=== PATIENT | female | born 1980 | race Native Hawaiian/Other Pacific Islander ===

== ENCOUNTER 2018-07-31 16:57 | Emergency (ER) | payer BC ==
--- NOTE | 2018-07-31 18:42 | ER Document Report ---
ED Medical Screen (RME) - General Chief Complaint: Lower Abdominal Pain Stated Complaint: ABDOMINAL PAIN Time Seen by Provider: 07/31/18 18:33 Notes: Patient is a 38-year-old female presents to the emergency department with generalized left lower abdominal pain. Patient states she started her menstrual cycle today state that the intermittent left lower abdominal pain is sharp in nature and does not feel like her normal menstrual cramps. Patient states she has a pressure when she urinates but is denying any malodorous or itchy vaginal discharge. GENERAL: Alert, interacts well. No acute distress. ABDOMEN: Obese soft, Non-distended. Bowel sounds present in all 4 quadrants. Patient's abdomen is hard to be assessed due to her sitting in a chair and not having anywhere for her to lay flat. Patient's habitus makes it hard to assess if her pain is left lower abdomen quadrant or left pelvic region. I have greeted and performed a rapid initial assessment of this patient. A comprehensive ED assessment and evaluation of the patient, analysis of test results and completion of the medical decision making process will be conducted by additional ED providers. TRAVEL OUTSIDE OF THE [place] IN LAST 30 DAYS: No - Related Data Allergies/Adverse Reactions: acetaminophen [From Midrin] Allergy (Verified 07/31/18 17:03) dichloralphenazone [From Midrin] Allergy (Verified 07/31/18 17:03) isometheptene [From Midrin] Allergy (Verified 07/31/18 17:03) Past Medical History Renal/ Medical History: Denies: Hx Peritoneal Dialysis Physical Exam - Vital signs Vitals: Temp Pulse Resp BP Pulse Ox 98.6 F 102 H 17 149/115 H 98 07/31/18 17:15 07/31/18 17:15 07/31/18 17:15 07/31/18 17:15 07/31/18 17:15 Course - Vital Signs Vital signs: Temp Pulse Resp BP Pulse Ox 98.6 F 102 H 17 149/115 H 98 07/31/18 17:15 07/31/18 17:15 07/31/18 17:15 07/31/18 17:15 07/31/18 17:15
[2018-07-31 19:52] LABS: ABSOLUTE BASOPHILS # (AUTO) 0.1 10^3/uL (0.0-0.2); ABSOLUTE EOSINOPHILS # (AUTO) 0.2 10^3/uL (0.0-0.6); ABSOLUTE LYMPHOCYTES (AUTO) 2.6 10^3/uL (0.5-4.7); ABSOLUTE MONOCYTES (AUTO) 0.8 10^3/uL (0.1-1.4); BASOPHILS % (AUTO) 0.6 % (0-2); EOSINOPHILS % (AUTO) 1.8 % (0-6); HEMATOCRIT 35.5 % (36.0-47.0); HEMOGLOBIN 11.3 g/dL (12.0-15.5); LYMPHOCYTES % (AUTO) 26.9 % (13-45); MEAN CORPUSCULAR HEMOGLOBIN 24.8 pg (27.0-33.4); MEAN CORPUSCULAR VOLUME 78 fl (80-97); MONOCYTES % (AUTO) 8.3 % (3-13); PLATELET COUNT 353 10^3/uL (150-450); RED BLOOD COUNT 4.57 10^6/uL (3.72-5.28); RED CELL DISTRIBUTION WIDTH 15.5 % (11.5-14.0); SEGMENTED NEUTROPHILS % (AUTO) 62.4 % (42-78); TOTAL CELLS COUNTED % (AUTO) 100 %; WHITE BLOOD COUNT 9.6 10^3/uL (4.0-10.5)
[2018-07-31 19:56] LABS: APPEARANCE,URINE SLIGHTLY-CLOUDY; BILIRUBIN,URINE NEGATIVE (NEGATIVE); COLOR,URINE YELLOW; GLUCOSE, URINE NEGATIVE (NEGATIVE); KETONES,URINE NEGATIVE (NEGATIVE); LEUKOCYTE ESTERASE,URINE NEGATIVE (NEGATIVE); NITRITE,URINE NEGATIVE (NEGATIVE); PROTEIN,URINE NEGATIVE (NEGATIVE); URINE SPECIFIC GRAVITY 1.016; UROBILINOGEN,URINE NEGATIVE mg/dL (<2.0)
[2018-07-31 20:12] LABS: ALANINE AMINOTRANSFERASE 19 U/L (9-52); ALBUMIN 4.5 g/dL (3.5-5.0); ALKALINE PHOSPHATASE 74 U/L (38-126); ANION GAP 11 (5-19); ASPARTATE AMINO TRANSFERASE 17 U/L (14-36); BILIRUBIN,DIRECT 0.2 mg/dL (0.0-0.4); BILIRUBIN,TOTAL 0.3 mg/dL (0.2-1.3); BLOOD UREA NITROGEN 11 mg/dL (7-20); CALCIUM 9.5 mg/dL (8.4-10.2); CARBON DIOXIDE 28 mmol/L (22-30); CHLORIDE 102 mmol/L (98-107); GLUCOSE 95 mg/dL (75-110); SODIUM 140.6 mmol/L (137-145); TOTAL PROTEIN 7.8 g/dL (6.3-8.2)
--- NOTE | 2018-07-31 23:02 | ER Document Report ---
ED GI/ - General Chief Complaint: Lower Abdominal Pain Stated Complaint: ABDOMINAL PAIN Time Seen by Provider: 07/31/18 22:51 Mode of Arrival: Ambulatory Information source: Patient Notes: HISTORY OF PRESENT ILLNESS: Patient is a 38-year-old female with a past medical history of polycystic ovary syndrome and irregular menses who presents with left lower pelvic pain beginning today with onset of her menstruation. She reports that she normally has approximate 45-day cycles and this was no different other than the degree of her pain which is not normally this severe. Onset: Today Provocation: Movement Quality: Aching, twisting Radiation: Bilateral low back Severity: Moderate now, was severe prior to arrival Timing: Constant but mildly improving REVIEW OF SYSTEMS: CONSTITUTIONAL : Denies fever or chills, no sweats. Denies recent illness. EENT: Denies eye, ear, throat, or mouth pain or symptoms. Denies nasal or sinus congestion. CARDIOVASCULAR: Denies chest pain. RESPIRATORY: Denies cough, cold, or chest congestion. Denies shortness of breath, difficulty breathing, or wheezing. GASTROINTESTINAL: Denies abdominal pain. Denies nausea, vomiting, or diarrhea. Denies constipation. GENITOURINARY: Denies difficulty urinating, painful urination, burning, frequency, or blood in urine. [FEMALE GENITOURINARY: Positive vaginal bleeding and pelvic/back pain. MUSCULOSKELETAL: Denies neck or back pain or joint pain or swelling. SKIN: Denies rash or skin lesions. HEMATOLOGIC : Denies easy bruising or bleeding. LYMPHATIC: Denies swollen, enlarged glands. NEUROLOGICAL: Denies altered mental status or loss of consciousness. Denies headache. Denies weakness or paralysis or loss of use of either side. Denies problems with gait or speech. Denies sensory or motor loss. PSYCHIATRIC: Denies anxiety or stress or depression. All other systems reviewed and negative. PHYSICAL EXAMINATION: GENERAL: Well-appearing, well-nourished and in no acute distress. HEAD: Atraumatic, normocephalic. No scalp deformity, depression, or crepitance. EYES: Pupils are 3 mm and equal/round/reactive to light, extraocular movements intact, sclera anicteric, conjunctiva are normal. ENT: Nares patent bilaterally, oropharynx clear without exudates or palatal petechia. Moist mucous membranes. No tonsil hypertrophy. NECK: Normal range of motion, supple without lymphadenopathy. LUNGS: Breath sounds present, equal, and clear to auscultation bilaterally. No wheezes, rales, or rhonchi. HEART: Regular rate and rhythm without murmurs, rubs, or gallops. 2+ peripheral pulses. Normal capillary refill. ABDOMEN: Soft, nontender, nondistended. Normoactive bowel sounds. No guarding, no rebound. No masses appreciated. Rectal exam deferred. BACK: No pain on palpation to the upper, mid, or lower back. PELVIC: Deferred. EXTREMITIES: Normal range of motion, no pitting or edema. No cyanosis. NEUROLOGICAL: No focal neurological deficits. Moves all extremities spontaneously and on command. PSYCH: Normal mood, normal affect. No suicidal thoughts/ideations. No homocidal thoughts/ideations. No hallucinations. SKIN: Warm, dry, normal turgor, no rashes or lesions noted. ASSESSMENT AND PLAN: This patient is a 38-year-old female who presents with likely ovarian cyst versu s torsion versus normal menstrual pains. 1. Will obtain labs with test, urinalysis, and pelvic ultrasound. 2. Will reassess after intramuscular Toradol. TRAVEL OUTSIDE OF THE [place] IN LAST 30 DAYS: No - Related Data Allergies/Adverse Reactions: acetaminophen [From Midrin] Allergy (Verified 07/31/18 17:03) dichloralphenazone [From Midrin] Allergy (Verified 07/31/18 17:03) isometheptene [From Midrin] Allergy (Verified 07/31/18 17:03) Past Medical History - General Information source: Patient - Social History Smoking Status: Smoker,Current Status Unk Chew tobacco use (# tins/day): No Frequency of alcohol use: None Drug Abuse: None Lives with: Family Family History: Reviewed & Not Pertinent Patient has suicidal ideation: No Patient has homicidal ideation: No - Past Medical History Cardiac Medical History: Reports: None Pulmonary Medical History: Reports: None EENT Medical History: Reports: None Neurological Medical History: Reports: None Endocrine Medical History: Reports: None Renal/ Medical History: Reports: None. Denies: Hx Peritoneal Dialysis Malignancy Medical History: Reports: None GI Medical History: Reports: None Musculoskeletal Medical History: Reports None Skin Medical History: Reports None Psychiatric Medical History: Reports: None Traumatic Medical History: Reports: None Infectious Medical History: Reports: None Surgical Hx: Negative Past Surgical History: Reports: None - Immunizations Immunizations up to date: Yes Hx Diphtheria, Pertussis, Tetanus Vaccination: Yes Physical Exam - Vital signs Vitals: Temp Pulse Resp BP Pulse Ox 98.6 F 102 H 17 149/115 H 98 07/31/18 17:15 07/31/18 17:15 07/31/18 17:15 07/31/18 17:15 07/31/18 17:15 Course - Re-evaluation Re-evalutation: 08/01/18 01:45 Ultrasound is negative for acute ovarian pathology, however does report thickened endometrial stripe and recommends follow-up with gynecology. Patient was informed of this and she reports that she will make an appointment as soon as she can with [place] She will be discharged home with return precautions and follow-up, patient voices both understanding and agreeing with the plan. - Vital Signs Vital signs: Temp Pulse Resp BP Pulse Ox 98.6 F 102 H 17 149/115 H 98 07/31/18 17:15 07/31/18 17:15 07/31/18 17:15 07/31/18 17:15 07/31/18 17:15 - Laboratory Result Diagrams: 07/31/18 19:39 07/31/18 19:39 Laboratory results interpreted by me: 07/31/18 07/31/18 19:39 19:39 Hgb 11.3 L Hct 35.5 L MCV 78 L MCH 24.8 L RDW 15.5 H Urine Blood LARGE H - Diagnostic Test Radiology reviewed: Image reviewed, Reports reviewed Discharge - Discharge Clinical Impression: Menorrhagia with irregular cycle, Endometrial thickening on ultrasound Condition: Good Disposition: HOME, SELF-CARE Instructions: Dysfunctional Uterine Bleeding ([facility]) Additional Instructions: You have been evaluated in the Emergency Department for abdominal pain in the setting of an irregular period. Please follow-up with your barrel marker as instructed in 1-2 weeks. Return to the Emergency Department if you experience worsening pain, uncontrollable bleeding, or any other concerning symptoms. Prescriptions: Diclofenac Sodium 75 mg PO BID #30 tablet. Print Language: Greek
[2018-07-31] MEDS ORDERED: KETOROLAC TROMETHAMINE 60 MG/2 ML SDV IM ONE (23:37)
--- NOTE | 2018-08-01 01:20 | RADIOLOGY REPORT (SQ) ---
EXAM DESCRIPTION: US TRANSVAGINAL COMPLETED DATE/TME: 08/01/2018 00:05 CLINICAL HISTORY: 38 years Female, Pelvic pain Comparison: None. Technique: LIMITATIONS: None. FINDINGS: 10-cm uterus, 2.0-cm endometrial stripe thickness, 2.7-cm cervical length, nabothian cysts, 3.2-cm right ovary, and partially obscured 3.9-cm left ovary appear otherwise unremarkable in size, shape, echotexture, and vascularity. No free fluid. IMPRESSION: Thickened endometrial stripe thickness measures 2.0 cm. Differential diagnosis includes endometrial hyperplasia, endometritis, and endometrial polyp/neoplasm. 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
[2018-08-01 02:03] VITALS: BP 125/78
== END 2018-08-01 02:00 | disposition home or self-care (01) ==
LOC: ER 16:57
DX: N92.0 Excessive and frequent menstruation with regular cycle (principal); R93.89 Abnormal findings on diagnostic imaging of other specified body structures; M54.5 Low back pain; R10.2 Pelvic and perineal pain; R10.30 Lower abdominal pain, unspecified; E28.2 Polycystic ovarian syndrome; F17.200 Nicotine dependence, unspecified, uncomplicated; Z88.6 Allergy status to analgesic agent
CPT/HCPCS: 99284; 36415; 85025; 81025; 80053; 81001; 76830; 93976; J1885

== ENCOUNTER 2018-08-24 09:38 | Day surgery (SDC) | payer BC ==
[2018-08-21 12:14] LABS: APPEARANCE,URINE SLIGHTLY-CLOUDY; BILIRUBIN,URINE NEGATIVE (NEGATIVE); COLOR,URINE YELLOW; GLUCOSE, URINE NEGATIVE (NEGATIVE); KETONES,URINE NEGATIVE (NEGATIVE); LEUKOCYTE ESTERASE,URINE NEGATIVE (NEGATIVE); NITRITE,URINE NEGATIVE (NEGATIVE); PROTEIN,URINE NEGATIVE (NEGATIVE); URINE SPECIFIC GRAVITY 1.018; UROBILINOGEN,URINE NEGATIVE mg/dL (<2.0)
[2018-08-21 13:36] LABS: HEMATOCRIT 35.2 % (36.0-47.0); HEMOGLOBIN 11.4 g/dL (12.0-15.5); MEAN CORPUSCULAR HEMOGLOBIN 24.7 pg (27.0-33.4); MEAN CORPUSCULAR HGB CONC 32.3 g/dL (32.0-36.0); MEAN CORPUSCULAR VOLUME 77 fl (80-97); PLATELET COUNT 318 10^3/uL (150-450); RED CELL DISTRIBUTION WIDTH 14.8 % (11.5-14.0); WHITE BLOOD COUNT 8.3 10^3/uL (4.0-10.5)
[~2018-08-24 09:38] MED LIST: LACTATED RINGERS 1000 ML IV PRN; LIDOCAINE 0.5% INJ-PF (5 MG/ML) 50 ML SDV SUBCUT PRN
[2018-08-24] MEDS ORDERED: DIPHENHYDRAMINE HCL 50 MG/ML VIAL IV PRN (11:16)
[2018-08-24] MEDS ORDERED: MORPHINE SULFATE 10 MG/ML INJ IV PRN (11:16)
[2018-08-24] MEDS ORDERED: PROMETHAZINE HCL INJ 25 MG/1 ML VIAL IV PRN (11:16)
[2018-08-24] MEDS ORDERED: FENTANYL CITRATE INJ/PF 100 MCG/2 ML AMPUL IV PRN ×3 (11:16)
[2018-08-24] MEDS ORDERED: MEPERIDINE HCL/PF INJ 25 MG/1 ML DISP.SYRIN IV PRN (11:16)
[2018-08-24] MEDS ORDERED: MIDAZOLAM 2 MG/2 ML INJ ONE (12:05)
[2018-08-24] MEDS ORDERED: PROPOFOL INJ 200 MG/20 ML VIAL IV ONE (12:05)
[2018-08-24] MEDS ORDERED: FENTANYL CITRATE INJ/PF 100 MCG/2 ML AMPUL ONE ×2 (12:05→13:09)
[2018-08-24] MEDS ORDERED: ONDANSETRON HCL INJ/PF 4 MG/2 ML SDV ONE (12:05)
[2018-08-24] MEDS ORDERED: KETOROLAC TROMETHAMINE INJ/PF 30 MG/1 ML SDV ONE (13:16)
[2018-08-24] MEDS ORDERED: OXYCODONE-ACETAMINOPHEN 5-325 MG TABLET PO PRN ×2 (13:37→13:38)
[2018-08-24] MEDS ORDERED: IBUPROFEN 800 MG TABLET PO PRN (13:37)
[2018-08-24] MEDS ORDERED: MORPHINE SULFATE 10 MG/ML INJ IM PRN (13:37)
[2018-08-24] MEDS ORDERED: OXYCODONE-ACETAMINOPHEN 5-325 MG TABLET ONE (13:45)
--- NOTE | 2018-08-24 14:58 | OPERATIVE REPORT E ---
Operative Report NAME: NICOLE SHIELDS : 1980 AGE: 38Y DATE OF SURGERY: 08/24/2018 ROOM: PREOPERATIVE DIAGNOSIS: Abnormal uterine bleeding. POSTOPERATIVE DIAGNOSIS: Abnormal uterine bleeding. OPERATION: Hysteroscope, dilation and curettage. SURGEON: ADEEL SALVADOR M.D. ANESTHESIA: Joey Kasper M.D. with LMAC. FINDINGS: The uterus sounded to approximately 5 cm. Normal uterine cavity. Polyp that measured approximately a little over 1 cm. COMPLICATIONS: None. ESTIMATED BLOOD LOSS: 10 mL. SPECIMENS REMOVED: Endometrial curettings. PROCEDURE IN DETAIL: The patient was taken to the operating room, prepared and draped in the normal sterile fashion in a dorsal lithotomy position. Under sterile conditions in-and-out cath was performed of approximately 20 mL of clear urine. A sterile speculum was then placed in the vagina and the cervix was prepped with Betadine and grasped on the anterior lip with a single-tooth tenaculum. With some difficulty the uterine sound was inserted. The internal cervical os was found to be quite stenotic but I was able to measure the uterine cavity to approximately 5 cm. I then dilated to accommodate a 5 mm hysteroscope which was inserted with the above findings noted. I then performed aggressive curettage with a Kevorkian curette and passed the endometrial curettings off the field. A polyp was then noted in the vaginal vault at the conclusion of the procedure. This polyp was removed and also passed off the field with the rest of the specimen. At this point we concluded the procedure. Sponge, lap, and needle counts were correct x2. All instruments were removed, and the patient was taken to recovery in stable condition. DICTATING PHYSICIAN: ADEEL SALVADOR M.D. [id number] [id number] ID: [id number] JOB#: [id number] ACCT: [id number] cc:ADEEL SALVADOR M.D. >
[2018-08-24] MEDS ORDERED: ONDANSETRON 4 MG TAB.RAPDIS ONE (15:13)
[2018-08-24 15:52] VITALS: BP 130/81
== END 2018-08-24 15:30 | disposition home or self-care (01) ==
LOC: OROUT 09:38
PROVIDERS: ATTEND Obstetrics & Gynecology
DX: N84.0 Polyp of corpus uteri (principal); N94.6 Dysmenorrhea, unspecified; N93.9 Abnormal uterine and vaginal bleeding, unspecified; D64.9 Anemia, unspecified; F17.210 Nicotine dependence, cigarettes, uncomplicated
CPT/HCPCS: 36415; 85027; 81025; 81001; 88305 ×2; 58558; J2250; S0119; J3010; J1885; J2405; J2704; 952

== ENCOUNTER 2019-03-26 16:02 | Outpatient (CLI) | payer BC ==
[2019-03-26 16:57] LABS: ABSOLUTE EOSINOPHILS # (AUTO) 0.3 10^3/uL (0.0-0.6); ABSOLUTE LYMPHOCYTES (AUTO) 1.4 10^3/uL (0.5-4.7); ABSOLUTE MONOCYTES (AUTO) 0.8 10^3/uL (0.1-1.4); ABSOLUTE NEUT (AUTO) 8.4 10^3/uL (1.7-8.2); BASOPHILS % (AUTO) 0.1 % (0-2); EOSINOPHILS % (AUTO) 2.6 % (0-6); HEMATOCRIT 31.4 % (36.0-47.0); HEMOGLOBIN 10.3 g/dL (12.0-15.5); LYMPHOCYTES % (AUTO) 12.9 % (13-45); MEAN CORPUSCULAR HEMOGLOBIN 27.2 pg (27.0-33.4); MEAN CORPUSCULAR HGB CONC 32.9 g/dL (32.0-36.0); MEAN CORPUSCULAR VOLUME 83 fl (80-97); MONOCYTES % (AUTO) 7.5 % (3-13); PLATELET COUNT 242 10^3/uL (150-450); RED CELL DISTRIBUTION WIDTH 14.8 % (11.5-14.0); SEGMENTED NEUTROPHILS % (AUTO) 76.9 % (42-78); TOTAL CELLS COUNTED % (AUTO) 100 %; WHITE BLOOD COUNT 10.9 10^3/uL (4.0-10.5)
[2019-03-26 17:16] LABS: ALBUMIN 3.5 g/dL (3.5-5.0); ALKALINE PHOSPHATASE 54 U/L (38-126); ANION GAP 7 (5-19); ASPARTATE AMINO TRANSFERASE 33 U/L (14-36); BILIRUBIN,DIRECT 0.1 mg/dL (0.0-0.4); BILIRUBIN,TOTAL 0.3 mg/dL (0.2-1.3); BLOOD UREA NITROGEN 9 mg/dL (7-20); CALCIUM 9.3 mg/dL (8.4-10.2); CARBON DIOXIDE 26 mmol/L (22-30); CHLORIDE 102 mmol/L (98-107); GLUCOSE 85 mg/dL (75-110); POTASSIUM 4.1 mmol/L (3.6-5.0); TOTAL PROTEIN 6.5 g/dL (6.3-8.2); URIC ACID 4.9 mg/dL (2.5-7.0)
[2019-03-26 17:33] LABS: APPEARANCE,URINE SLIGHTLY-CLOUDY; BILIRUBIN,URINE NEGATIVE (NEGATIVE); COLOR,URINE YELLOW; GLUCOSE, URINE NEGATIVE (NEGATIVE); KETONES,URINE NEGATIVE (NEGATIVE); LEUKOCYTE ESTERASE,URINE NEGATIVE (NEGATIVE); NITRITE,URINE NEGATIVE (NEGATIVE); PROTEIN,URINE NEGATIVE (NEGATIVE); URINE SPECIFIC GRAVITY 1.013; UROBILINOGEN,URINE NEGATIVE mg/dL (<2.0)
[2019-03-26 17:50] LABS: URINE AMPHETAMINES SCREEN NEGATIVE; URINE BARBITURATES SCREEN NEGATIVE; URINE BENZODIAZEPINES SCREEN NEGATIVE; URINE COCAINE SCREEN NEGATIVE; URINE MARIJUANA (THC) SCREEN NEGATIVE; URINE METHADONE SCREEN NEGATIVE; URINE PHENCYCLIDINE SCREEN NEGATIVE
[2019-03-26 17:54] LABS: UR PRO/CREAT RATIO RESULT 0.1 mg/mg (0.0-0.2); URINE CREATININE 108.1 mg/dL (16-327); URINE PROTEIN 10.7 mg/dL (<12)
== END 2019-03-26 18:10 | disposition home or self-care (01) ==
LOC: LC 16:02
PROVIDERS: ATTEND Obstetrics & Gynecology
PROC: 4A1HXCZ Monitoring of Products of Conception, Cardiac Rate, External Approach (ICD-10-PCS; principal; 2019-03-26)
DX: O14.92 Unspecified pre-eclampsia, second trimester (principal); Z3A.25 25 weeks gestation of pregnancy
CPT/HCPCS: 36415; 80053; 80307; 81001; 82570; 83615; 84156; 84550; 85025

== ENCOUNTER 2019-04-20 08:39 | Outpatient (CLI) | payer BC ==
[2019-04-20 09:27] LABS: APPEARANCE,URINE SLIGHTLY-CLOUDY; BILIRUBIN,URINE NEGATIVE (NEGATIVE); COLOR,URINE YELLOW; GLUCOSE, URINE NEGATIVE (NEGATIVE); KETONES,URINE NEGATIVE (NEGATIVE); LEUKOCYTE ESTERASE,URINE NEGATIVE (NEGATIVE); NITRITE,URINE NEGATIVE (NEGATIVE); PROTEIN,URINE NEGATIVE (NEGATIVE); URINE SPECIFIC GRAVITY 1.014; UROBILINOGEN,URINE NEGATIVE mg/dL (<2.0)
[2019-04-20 09:54] LABS: URINE AMPHETAMINES SCREEN NEGATIVE; URINE BARBITURATES SCREEN NEGATIVE; URINE BENZODIAZEPINES SCREEN NEGATIVE; URINE COCAINE SCREEN NEGATIVE; URINE MARIJUANA (THC) SCREEN NEGATIVE; URINE METHADONE SCREEN NEGATIVE; URINE PHENCYCLIDINE SCREEN NEGATIVE
[2019-04-20 09:58] LABS: UR PRO/CREAT RATIO RESULT 0.2 mg/mg (0.0-0.2); URINE CREATININE 99.7 mg/dL (16-327); URINE PROTEIN 19.1 mg/dL (<12)
[2019-04-20 10:13] LABS: ABSOLUTE EOSINOPHILS # (AUTO) 0.2 10^3/uL (0.0-0.6); ABSOLUTE LYMPHOCYTES (AUTO) 1.2 10^3/uL (0.5-4.7); ABSOLUTE MONOCYTES (AUTO) 0.7 10^3/uL (0.1-1.4); ABSOLUTE NEUT (AUTO) 8.3 10^3/uL (1.7-8.2); BASOPHILS % (AUTO) 0.1 % (0-2); EOSINOPHILS % (AUTO) 1.9 % (0-6); HEMATOCRIT 32.3 % (36.0-47.0); HEMOGLOBIN 10.4 g/dL (12.0-15.5); LYMPHOCYTES % (AUTO) 11.3 % (13-45); MEAN CORPUSCULAR HEMOGLOBIN 27.3 pg (27.0-33.4); MEAN CORPUSCULAR HGB CONC 32.3 g/dL (32.0-36.0); MEAN CORPUSCULAR VOLUME 85 fl (80-97); MONOCYTES % (AUTO) 6.4 % (3-13); PLATELET COUNT 240 10^3/uL (150-450); RED BLOOD COUNT 3.82 10^6/uL (3.72-5.28); RED CELL DISTRIBUTION WIDTH 14.9 % (11.5-14.0); SEGMENTED NEUTROPHILS % (AUTO) 80.3 % (42-78); TOTAL CELLS COUNTED % (AUTO) 100 %; WHITE BLOOD COUNT 10.4 10^3/uL (4.0-10.5)
[2019-04-20 10:34] LABS: ALBUMIN 3.3 g/dL (3.5-5.0); ALKALINE PHOSPHATASE 56 U/L (38-126); ANION GAP 9 (5-19); ASPARTATE AMINO TRANSFERASE 43 U/L (14-36); BILIRUBIN,TOTAL 0.4 mg/dL (0.2-1.3); BLOOD UREA NITROGEN 10 mg/dL (7-20); CALCIUM 9.2 mg/dL (8.4-10.2); CARBON DIOXIDE 23 mmol/L (22-30); CHLORIDE 104 mmol/L (98-107); GLUCOSE 106 mg/dL (75-110); POTASSIUM 4.3 mmol/L (3.6-5.0); TOTAL PROTEIN 6.5 g/dL (6.3-8.2)
[2019-04-20] MEDS ORDERED: BUTALB/ACETAMINOPHEN/CAFFEINE 1 TAB EACH PO ONE (10:39)
[2019-04-20] MEDS ORDERED: BUTALB/ACETAMINOPHEN/CAFFEINE 1 TAB EACH ONE (10:54)
== END 2019-04-20 12:02 | disposition home or self-care (01) ==
LOC: LC 08:39
PROVIDERS: ATTEND Obstetrics & Gynecology
PROC: 4A1HXCZ Monitoring of Products of Conception, Cardiac Rate, External Approach (ICD-10-PCS; principal; 2019-04-20)
DX: O16.3 Unspecified maternal hypertension, third trimester (principal); O09.513 Supervision of elderly primigravida, third trimester; Z3A.29 29 weeks gestation of pregnancy
CPT/HCPCS: 59899; 36415; 83615; 84156; 84550; 82570; 85025; 80053; 81001; 80307; J3490

== ENCOUNTER → 2019-04-30 | Outpatient (CLI) | payer BC ==
[2019-04-30 18:09] LABS: APPEARANCE,URINE CLEAR; BILIRUBIN,URINE NEGATIVE (NEGATIVE); COLOR,URINE COLORLESS; GLUCOSE, URINE NEGATIVE (NEGATIVE); KETONES,URINE NEGATIVE (NEGATIVE); LEUKOCYTE ESTERASE,URINE NEGATIVE (NEGATIVE); NITRITE,URINE NEGATIVE (NEGATIVE); PROTEIN,URINE 30 mg/dL (NEGATIVE); UROBILINOGEN,URINE NEGATIVE mg/dL (<2.0)
[2019-04-30 18:21] LABS: URINE SPECIFIC GRAVITY 1.019
[2019-04-30 18:28] LABS: URINE AMPHETAMINES SCREEN NEGATIVE; URINE BARBITURATES SCREEN NEGATIVE; URINE BENZODIAZEPINES SCREEN NEGATIVE; URINE COCAINE SCREEN NEGATIVE; URINE MARIJUANA (THC) SCREEN NEGATIVE; URINE METHADONE SCREEN NEGATIVE; URINE PHENCYCLIDINE SCREEN NEGATIVE
--- NOTE | 2019-04-30 18:57 | Non Stress Test Report ---
Non Stress Test Datetime Report Generated by CPN: 04/30/2019 18:57 DEMOGRAPHIC EGA NST: 30.6 MONITORING Time on Monitor: 04/30/2019 17:04 Time off Monitor: 04/30/2019 18:30 NST Duration: 86 NST INTERVENTIONS BABY A: [id number] BABY A Movement : Present Contraction Frequency : none FHR Baseline : 135 Accelerations : 15X15 Decelerations : None Variability : Moderate 6-25bpm NST Review: Meets Criteria for Reactive NST NST Review and Verified By : squinn NST Results: Reactive NST REPORT Report Trigger: Send Report (Annotations: Data stored by CPN on behalf of user)
== END ==
LOC: LC 16:56
PROVIDERS: ATTEND Obstetrics & Gynecology
PROC: 4A1HXCZ Monitoring of Products of Conception, Cardiac Rate, External Approach (ICD-10-PCS; principal; 2019-04-30)
DX: Z34.93 Encounter for supervision of normal pregnancy, unspecified, third trimester (principal)
CPT/HCPCS: 59025; 80307; 81001

== ENCOUNTER 2019-05-10 16:58 | Observation (INO) | payer BC ==
[2019-05-10] MEDS ORDERED: OXYTOCIN/NORMAL SALINE 0 UNIT/0 ML RTUINJ ONE (17:55)
--- NOTE | 2019-05-10 18:25 | Non Stress Test Report ---
Non Stress Test Datetime Report Generated by CPN: 05/10/2019 18:25 DEMOGRAPHIC EGA NST: 32.2 INDICATION Indication for Study: Gestational Hypertension; Chronic Hypertension; Other - Please document "Reason for NST Other" in box below. Indication for Study (NST) Other: 32.2 obesity, elevated b/p (Annotations: Data stored by CPN on behalf of user) MONITORING Monitor Explained: Monitor Explained; Test Explained; Patient Verbalized Understanding Time on Monitor: 05/10/2019 17:30 NST INTERVENTIONS NST Interventions: PO Hydration Physician Notified NST: Dr. Mahajan BABY A Movement : Present Contraction Frequency : 0 FHR Baseline : 135 Accelerations : 15X15 Decelerations : None Variability : Moderate 6-25bpm NST Review: Meets Criteria for Reactive NST NST Review and Verified By : M Sasala RN NST Results: Reactive NST REPORT Report Trigger: Send Report
[2019-05-10 18:30] LABS: ABSOLUTE BASOPHILS # (AUTO) 0.1 10^3/uL (0.0-0.2); ABSOLUTE EOSINOPHILS # (AUTO) 0.3 10^3/uL (0.0-0.6); ABSOLUTE LYMPHOCYTES (AUTO) 1.5 10^3/uL (0.5-4.7); ABSOLUTE MONOCYTES (AUTO) 1.1 10^3/uL (0.1-1.4); ABSOLUTE NEUT (AUTO) 8.5 10^3/uL (1.7-8.2); BASOPHILS % (AUTO) 0.6 % (0-2); EOSINOPHILS % (AUTO) 2.2 % (0-6); HEMATOCRIT 32.1 % (36.0-47.0); HEMOGLOBIN 10.5 g/dL (12.0-15.5); MEAN CORPUSCULAR HEMOGLOBIN 27.4 pg (27.0-33.4); MEAN CORPUSCULAR HGB CONC 32.6 g/dL (32.0-36.0); MEAN CORPUSCULAR VOLUME 84 fl (80-97); MONOCYTES % (AUTO) 9.6 % (3-13); PLATELET COUNT 222 10^3/uL (150-450); RED BLOOD COUNT 3.82 10^6/uL (3.72-5.28); RED CELL DISTRIBUTION WIDTH 14.6 % (11.5-14.0); SEGMENTED NEUTROPHILS % (AUTO) 74.6 % (42-78); TOTAL CELLS COUNTED % (AUTO) 100 %; WHITE BLOOD COUNT 11.4 10^3/uL (4.0-10.5)
--- NOTE | 2019-05-10 18:46 | Admission Physical ---
Datetime Report Generated by CPN: 05/10/2019 18:46 CURRENT ADMISSION Chief Complaint: Other Indication for Induction: Not Applicable Admit Impression : Medical Complication Admit Plan: Admit to Unit ALLERGIES Medication Allergies: Yes Medication Allergies: dichloralphenazone (05/10/2019); acetaminophen (05/10/2019); isometheptene (05/10/2019) Latex: No Latex Allergies OBSTETRICAL HISTORY EDC: 07/03/2019 00:00 : 1 Para: 0 Term: 0 : 0 SAB: 0 IAB: 0 Ectopic: 0 Livin Cesareans: 0 VBACs: 0 Multiple Births: 0 PHYSICAL EXAM General: Normal HEENT: Normal Neurologic: Normal Thyroid: Normal Heart: Normal Lungs: Normal Breast: Deferred Back: Normal Abdomen: Normal Genitourinary Exam: Normal Extremities: Normal DTRs: Normal Pelvic Type: Adequate FETUS A EGA: 32.2 Admit Comment: 9 pound weight gain in one week and elevated bp plan observation and steroids probable chronic htn and possible early mild pre-eclampsia INFORMED CONSENT Signature: with User ID: [email or web address]
[2019-05-10 18:50] LABS: APPEARANCE,URINE SLIGHTLY-CLOUDY; BILIRUBIN,URINE NEGATIVE (NEGATIVE); CALCIUM OXALATE CRYSTALS,URINE MANY /HPF; COLOR,URINE YELLOW; GLUCOSE, URINE NEGATIVE (NEGATIVE); KETONES,URINE NEGATIVE (NEGATIVE); LEUKOCYTE ESTERASE,URINE TRACE (NEGATIVE); NITRITE,URINE NEGATIVE (NEGATIVE); PROTEIN,URINE 30 mg/dL (NEGATIVE); URINE SPECIFIC GRAVITY 1.029; UROBILINOGEN,URINE NEGATIVE mg/dL (<2.0)
[2019-05-10 18:57] LABS: URINE AMPHETAMINES SCREEN NEGATIVE; URINE BARBITURATES SCREEN NEGATIVE; URINE BENZODIAZEPINES SCREEN NEGATIVE; URINE COCAINE SCREEN NEGATIVE; URINE MARIJUANA (THC) SCREEN NEGATIVE; URINE METHADONE SCREEN NEGATIVE; URINE PHENCYCLIDINE SCREEN NEGATIVE
[2019-05-10 18:58] LABS: ALBUMIN 3.1 g/dL (3.5-5.0); ALKALINE PHOSPHATASE 68 U/L (38-126); ANION GAP 6 (5-19); ASPARTATE AMINO TRANSFERASE 28 U/L (14-36); BILIRUBIN,TOTAL 0.3 mg/dL (0.2-1.3); BLOOD UREA NITROGEN 13 mg/dL (7-20); CALCIUM 9.6 mg/dL (8.4-10.2); CARBON DIOXIDE 25 mmol/L (22-30); CHLORIDE 104 mmol/L (98-107); GLUCOSE 77 mg/dL (75-110); POTASSIUM 4.4 mmol/L (3.6-5.0); TOTAL PROTEIN 6.2 g/dL (6.3-8.2); URIC ACID 6.1 mg/dL (2.5-7.0)
[2019-05-10 19:02] LABS: UR PRO/CREAT RATIO RESULT 0.2 mg/mg (0.0-0.2); URINE CREATININE 224.7 mg/dL (16-327); URINE PROTEIN 40.5 mg/dL (<12)
[2019-05-10] MEDS ORDERED: BETAMET ACET/BETAMET NA INJ 6 MG/1 ML ONE (19:21)
[2019-05-10] MEDS: BETAMET ACET/BETAMET NA INJ 6 MG/1 ML IM SCH (22:58)
[2019-05-11] MEDS ORDERED: CALCIUM CARBONATE 500 MG TABLET PO SCH (10:00)
[2019-05-11] MEDS: FERROUS SULFATE 325 MG TABLET PO SCH ×2 (10:22→18:39)
[2019-05-11] MEDS: LORATADINE 10 MG TABLET PO SCH (10:22)
[2019-05-11] MEDS: ASPIRIN 81 MG TABLET, CHEWABLE PO SCH ×3 (10:22→18:46)
[2019-05-11] MEDS: PRENATAL VITAMIN W DHA CAPSULE PO SCH (10:22)
[2019-05-11] MEDS: FOLIC ACID 1 MG TABLET PO SCH (10:22)
--- NOTE | 2019-05-11 14:25 | PDOC PROGRESS REPORT ---
Subjective Progress Note for:: 05/11/19 Subjective:: Doing well today. No CP, SOB, RUQ pain, n/v or headache. SHe is eating lunch Has been up out of bed without dizziness and ambulating Reason For Visit: LABOR Physical Exam - Physical Exam Vital Signs: Temp Pulse Resp BP Pulse Ox 98.0 F 91 16 147/78 H 100 05/11/19 07:40 05/11/19 07:40 05/11/19 07:40 05/11/19 07:40 05/11/19 07:40 Intake & Output 05/10/19 05/11/19 05/12/19 06:59 06:59 06:59 Intake Total 480 Balance 480 Weight 141 kg General appearance: PRESENT: no acute distress, cooperative Respiratory exam: PRESENT: clear to auscultation yisel Cardiovascular exam: PRESENT: RRR, +S1, +S2 GI/Abdominal exam: PRESENT: normal bowel sounds, soft Extremities exam: PRESENT: other - No pitting edema Musculoskeletal exam: PRESENT: ambulatory Neurological exam: PRESENT: alert, other - NO clonus. Patellar reflexes 1/4 BLE Skin exam: PRESENT: dry, normal color, warm Result Laboratory Results: 05/10/19 18:23 05/10/19 18:23 05/10/19 05/10/19 05/10/19 17:17 18:23 18:23 WBC 11.4 H RBC 3.82 Hgb 10.5 L Hct 32.1 L MCV 84 MCH 27.4 MCHC 32.6 RDW 14.6 H Plt Count 222 Seg Neutrophils % 74.6 Sodium 134.6 L Potassium 4.4 Chloride 104 Carbon Dioxide 25 Anion Gap 6 BUN 13 Creatinine 0.71 Est GFR ( Amer) > 60 Glucose 77 Uric Acid 6.1 Calcium 9.6 Total Bilirubin 0.3 AST 28 Alkaline Phosphatase 68 Total Protein 6.2 L Albumin 3.1 L Urine Color YELLOW Urine Appearance SLIGHTLY-CLOUDY Urine pH 6.0 Ur Specific [place] 1.029 Urine Protein 30 H Urine Glucose (UA) NEGATIVE Urine Ketones NEGATIVE Urine Blood NEGATIVE Urine Nitrite NEGATIVE Ur Leukocyte Esterase TRACE H Urine WBC (Auto) 5 Urine RBC (Auto) 8 Assessment & Plan - Diagnosis (1) Elevated blood pressure affecting in third trimester, antepartum Is this a current diagnosis for this admission?: Yes Plan: Asymptomatic today PIH labs stable except P:C 0.2 : 24 hr urine pending collection completion this evening Mild elevated b/p but no severes today. Monitor for s/s preeclampsia. Encouraged ambulation. SCDs while non-ambulatory - Time Time Spent with patient: 15-24 minutes Medications reviewed and adjusted accordingly: Yes Anticipated discharge: Home Within: within 48 hours
[2019-05-11] MEDS: BETAMET ACET/BETAMET NA INJ 6 MG/1 ML IM SCH (18:44)
[2019-05-11 20:13] LABS: URINE CREATININE 89.4 mg/dL (16-327); URINE PROTEIN 35.3 mg/dL (<12)
[2019-05-11 20:15] LABS: 24 HOUR URINE PROTEIN RESULT 722 mg/day (42-225)
[2019-05-11 22:26] LABS: HEMATOCRIT 30.9 % (36.0-47.0); HEMOGLOBIN 10.2 g/dL (12.0-15.5); MEAN CORPUSCULAR HEMOGLOBIN 27.4 pg (27.0-33.4); MEAN CORPUSCULAR VOLUME 83 fl (80-97); PLATELET COUNT 231 10^3/uL (150-450); RED BLOOD COUNT 3.72 10^6/uL (3.72-5.28); RED CELL DISTRIBUTION WIDTH 14.8 % (11.5-14.0); WHITE BLOOD COUNT 13.9 10^3/uL (4.0-10.5)
[2019-05-11] MEDS: LABETALOL HCL 200 MG TABLET PO SCH (22:28)
[2019-05-11 22:43] LABS: ALBUMIN 3.1 g/dL (3.5-5.0); ALKALINE PHOSPHATASE 60 U/L (38-126); ANION GAP 7 (5-19); ASPARTATE AMINO TRANSFERASE 26 U/L (14-36); BILIRUBIN,DIRECT 0.1 mg/dL (0.0-0.4); BILIRUBIN,TOTAL 0.2 mg/dL (0.2-1.3); BLOOD UREA NITROGEN 17 mg/dL (7-20); CALCIUM 9.6 mg/dL (8.4-10.2); CARBON DIOXIDE 21 mmol/L (22-30); CHLORIDE 108 mmol/L (98-107); GLUCOSE 161 mg/dL (75-110); POTASSIUM 4.6 mmol/L (3.6-5.0); TOTAL PROTEIN 6.2 g/dL (6.3-8.2); URIC ACID 6.8 mg/dL (2.5-7.0)
[2019-05-12] MEDS ORDERED: NIFEDIPINE 30 MG TAB.ER.24 PO ONE (02:00)
[2019-05-12] MEDS: FOLIC ACID 1 MG TABLET PO SCH (09:08)
[2019-05-12] MEDS: LORATADINE 10 MG TABLET PO SCH (09:08)
[2019-05-12] MEDS: PRENATAL VITAMIN W DHA CAPSULE PO SCH (09:08)
[2019-05-12] MEDS: LABETALOL HCL 200 MG TABLET PO SCH (09:09)
[2019-05-12] MEDS: FERROUS SULFATE 325 MG TABLET PO SCH (09:09)
[2019-05-12] MEDS ORDERED: ASPIRIN 81 MG TABLET, CHEWABLE PO SCH (10:00)
--- NOTE | 2019-05-12 10:23 | PDOC DISCHARGE SUMMARY ---
Impression - Admit/DC Date/PCP Admission Date/Primary Care Provider: 05/10/19 18:51 NURIS RICHARDSON MD Discharge Date: 05/12/19 - Discharge Diagnosis (1) Is this a current diagnosis for this admission?: Yes (2) Obesity affecting in third trimester Is this a current diagnosis for this admission?: Yes (3) Elevated blood pressure affecting in third trimester, antepartum Is this a current diagnosis for this admission?: Yes - Additional Information Resuscitation Status: Full Code Discharge Diet: Other (Comments) - low carb, low sodium, low fat, low sugar Discharge Activity: Balance Activity w/Rest Referrals: [facility] [Provider Group] Prescriptions: Aspirin [Aspirin 81 mg Chewable Tablet] 81 mg PO DAILY #30 tab.chew Labetalol HCl [Normodyne 200 mg Tablet] 200 mg PO Q12 #60 tablet Nifedipine [Procardia XL 30 mg Tablet] 30 mg PO QAM #30 tab.er.24 Home Medications: Calcium Carbonate [Calcium] 500 mg PO DAILY 03/26/19 Folic Acid [Folvite 1 mg Tablet] 1 mg PO DAILY 03/26/19 Vit/Dha [ Multi + Dha Capsule] 1 cap PO DAILY 03/26/19 Ferrous Sulfate [Ferosul] 325 mg PO BID 05/10/19 Aspirin [Aspirin 81 mg Chewable Tablet] 81 mg PO DAILY #30 tab.chew 05/12/19 Labetalol HCl [Normodyne 200 mg Tablet] 200 mg PO Q12 #60 tablet 05/12/19 Nifedipine [Procardia XL 30 mg Tablet] 30 mg PO QAM #30 tab.er.24 05/12/19 Additional Information: patient to keep twice weekly appt at [facility]. Strict PreE signs and symptoms reviewed. will attempt to get patient to 34 wks before considering delivery. If she is stable at that point can assess regularly for when to proceed to delivery but otherwise delivery should be in 37th at latest. History of Present Illiness History of Present Illness: NICOLE SHIELDS is a 38 year old female Physical Exam - Physical Exam Vital Signs: Temp Pulse Resp BP Pulse Ox 97.8 F 79 18 140/66 H 99 05/12/19 08:13 05/12/19 08:13 05/12/19 08:13 05/12/19 08:13 05/12/19 08:13 Intake & Output 05/11/19 05/12/19 05/13/19 06:59 06:59 06:59 Intake Total 480 400 Balance 480 400 Weight 141 kg Results Laboratory Results: WBC 13.9 10^3/uL (4.0-10.5) H 05/11/19 22:12 RBC 3.72 10^6/uL (3.72-5.28) 05/11/19 22:12 Hgb 10.2 g/dL (12.0-15.5) L 05/11/19 22:12 Hct 30.9 % (36.0-47.0) L 05/11/19 22:12 MCV 83 fl (80-97) 05/11/19 22:12 MCH 27.4 pg (27.0-33.4) 05/11/19 22:12 MCHC 33.0 g/dL (32.0-36.0) 05/11/19 22:12 RDW 14.8 % (11.5-14.0) H 05/11/19 22:12 Plt Count 231 10^3/uL (150-450) 05/11/19 22:12 Lymph % (Auto) 13.0 % (13-45) 05/10/19 18:23 [place] % (Auto) 9.6 % (3-13) 05/10/19 18:23 Eos % (Auto) 2.2 % (0-6) 05/10/19 18:23 Baso % (Auto) 0.6 % (0-2) 05/10/19 18:23 Absolute Neuts (auto) 8.5 10^3/uL (1.7-8.2) H 05/10/19 18:23 Absolute Lymphs (auto) 1.5 10^3/uL (0.5-4.7) 05/10/19 18:23 Absolute Monos (auto) 1.1 10^3/uL (0.1-1.4) 05/10/19 18:23 Absolute Eos (auto) 0.3 10^3/uL (0.0-0.6) 05/10/19 18:23 Absolute Basos (auto) 0.1 10^3/uL (0.0-0.2) 05/10/19 18:23 Seg Neutrophils % 74.6 % (42-78) 05/10/19 18:23 Sodium 136.3 mmol/L (137-145) L 05/11/19 22:12 Potassium 4.6 mmol/L (3.6-5.0) 05/11/19 22:12 Chloride 108 mmol/L (98-107) H 05/11/19 22:12 Carbon Dioxide 21 mmol/L (22-30) L 05/11/19 22:12 Anion Gap 7 (5-19) 05/11/19 22:12 BUN 17 mg/dL (7-20) 05/11/19 22:12 Creatinine 0.69 mg/dL (0.52-1.25) 05/11/19 22:12 Est GFR ( Amer) > 60 (>60) 05/11/19 22:12 Est GFR (MDRD) Non-Af > 60 (>60) 05/11/19 22:12 Glucose 161 mg/dL (75-110) H 05/11/19 22:12 POC Glucose 141 mg/dL (70-110) H 05/12/19 09:15 Uric Acid 6.8 mg/dL (2.5-7.0) 05/11/19 22:12 Calcium 9.6 mg/dL (8.4-10.2) 05/11/19 22:12 Total Bilirubin 0.2 mg/dL (0.2-1.3) 05/11/19 22:12 Direct Bilirubin 0.1 mg/dL (0.0-0.4) 05/11/19 22:12 Neonat Total Bilirubin Not Reportable 05/11/19 22:12 Neonat Direct Bilirubin Not Reportable 05/11/19 22:12 Neonat Indirect Bili Not Reportable 05/11/19 22:12 AST 26 U/L (14-36) 05/11/19 22:12 ALT 25 U/L (<35) 05/11/19 22:12 Alkaline Phosphatase 60 U/L (38-126) 05/11/19 22:12 Lactate Dehydrogenase 152 U/L (120-246) 05/11/19 22:12 Total Protein 6.2 g/dL (6.3-8.2) L 05/11/19 22:12 Albumin 3.1 g/dL (3.5-5.0) L 05/11/19 22:12 Urine Color YELLOW 05/10/19 17:17 Urine Appearance SLIGHTLY-CLOUDY 05/10/19 17:17 Urine pH 6.0 (5.0-9.0) 05/10/19 17:17 Ur Specific [place] 1.029 05/10/19 17:17 Urine Protein 30 mg/dL (NEGATIVE) H 05/10/19 17:17 Urine Glucose (UA) NEGATIVE mg/dL (NEGATIVE) 05/10/19 17:17 Urine Ketones NEGATIVE mg/dL (NEGATIVE) 05/10/19 17:17 Urine Blood NEGATIVE (NEGATIVE) 05/10/19 17:17 Urine Nitrite NEGATIVE (NEGATIVE) 05/10/19 17:17 Urine Bilirubin NEGATIVE (NEGATIVE) 05/10/19 17:17 Urine Urobilinogen NEGATIVE mg/dL (<2.0) 05/10/19 17:17 Ur Leukocyte Esterase TRACE (NEGATIVE) H 05/10/19 17:17 Urine WBC (Auto) 5 /HPF 05/10/19 17:17 Urine RBC (Auto) 8 /HPF 05/10/19 17:17 Urine Bacteria (Auto) TRACE /HPF 05/10/19 17:17 Squamous Epi Cells Auto 10 /HPF 05/10/19 17:17 Calcium Oxalate Cr Auto MANY /HPF 05/10/19 17:17 Urine Mucus (Auto) FEW /LPF 05/10/19 17:17 Ur 24 Hour Volume 2045 mL 05/11/19 18:50 Urine Creatinine 89.4 mg/dL (16-327) 05/11/19 18:50 Ur Creatinine mg/24hr 1.8 mg/day (0.8-2.0) 05/11/19 18:50 Ur Total Protein 24 Hr 722 mg/day (42-225) H 05/11/19 18:50 Protein/Creatinin Ratio 0.2 mg/mg (0.0-0.2) 05/10/19 17:17 Urine Total Protein 35.3 mg/dL (<12) H 05/11/19 18:50 Urine Ascorbic Acid NEGATIVE (NEGATIVE) 05/10/19 17:17 Urine Opiates Screen NEGATIVE 05/10/19 17:17 Urine Methadone Screen NEGATIVE 05/10/19 17:17 Ur Barbiturates Screen NEGATIVE 05/10/19 17:17 Ur Phencyclidine Scrn NEGATIVE 05/10/19 17:17 Ur Amphetamines Screen NEGATIVE 05/10/19 17:17 U Benzodiazepines Scrn NEGATIVE 05/10/19 17:17 Urine Cocaine Screen NEGATIVE 05/10/19 17:17 U Marijuana (THC) Screen NEGATIVE 05/10/19 17:17 Stroke Is this a Stroke Patient?: No Acute Heart Failure - Is this a Heart Failure Patient?: No
[2019-05-12 12:31] VITALS: BP 130/60
--- NOTE | 2019-05-12 13:16 | RADIOLOGY REPORT (SQ) ---
EXAM DESCRIPTION: U/S PROFILE W/O STRESS COMPLETED DATE/TIME: 05/12/2019 1:06 pm REASON FOR STUDY: severe preeclampsia COMPARISON: None. TECHNIQUE: Limited darnell-scale realtime and static images of the fetus to measure specified parameter s. LIMITATIONS: None. FINDINGS: HEART RATE: 132 beats per minute. MONI: Adequate cm. BREATHING MOVEMENT: 2 points. MOVEMENT: 2 points. POSTURE AND TONE: 2 points. QUALITATIVE MONI: 2 points. OTHER: No other significant finding. IMPRESSION: BIOPHYSICAL PROFILE: 02/08. Trimester of : Third - 28 weeks to delivery COMMENT: BREATHING MOVEMENTS: 2 POINTS: PRESENT 0 POINTS: ABSENT MOTION: 2 POINTS: PRESENT 0 POINTS: ABSENT TONE: 2 POINTS: PRESENT 0 POINTS: ABSENT AMNIOTIC FLUID VOLUME: 2 POINTS: LARGEST POCKET GREATER THAN 2 CM DEPTH. 0 POINTS: NO POCKET OF 2 CM. TECHNICAL DOCUMENTATION: JOB ID: [id number] [employer]- All Rights Reserved Reading location - IP/workstation name: [email or web address]
[2019-05-13] MEDS ORDERED: NIFEDIPINE 30 MG TAB.ER.24 PO SCH (08:00)
== END 2019-05-12 12:55 | disposition home or self-care (01) ==
LOC: LC 16:58 → LR 18:51 → 2S 22:40
PROVIDERS: ADMIT Obstetrics & Gynecology Gynecology; ATTEND Obstetrics & Gynecology Gynecology
DX: O16.3 Unspecified maternal hypertension, third trimester (principal); O99.213 Obesity complicating pregnancy, third trimester; E66.9 Obesity, unspecified; Z3A.32 32 weeks gestation of pregnancy
CPT/HCPCS: 59025 ×2; 36415 ×2; 82570 ×2; 82962 ×2; 83615 ×2; 84156 ×2; 84550 ×2; 85025; 85027; 80053 ×2; 81001; 80307; 76819; G0378 ×4; J0702 ×2; J3490 ×2; J2590

== ENCOUNTER 2019-05-24 16:32 | Outpatient (CLI) | payer BC ==
[2019-05-24 17:34] LABS: ABSOLUTE EOSINOPHILS # (AUTO) 0.2 10^3/uL (0.0-0.6); ABSOLUTE LYMPHOCYTES (AUTO) 1.4 10^3/uL (0.5-4.7); ABSOLUTE MONOCYTES (AUTO) 1.3 10^3/uL (0.1-1.4); ABSOLUTE NEUT (AUTO) 8.7 10^3/uL (1.7-8.2); BASOPHILS % (AUTO) 0.3 % (0-2); EOSINOPHILS % (AUTO) 2.1 % (0-6); HEMATOCRIT 34.8 % (36.0-47.0); HEMOGLOBIN 11.4 g/dL (12.0-15.5); LYMPHOCYTES % (AUTO) 11.9 % (13-45); MEAN CORPUSCULAR HEMOGLOBIN 27.8 pg (27.0-33.4); MEAN CORPUSCULAR HGB CONC 32.7 g/dL (32.0-36.0); MEAN CORPUSCULAR VOLUME 85 fl (80-97); MONOCYTES % (AUTO) 10.8 % (3-13); PLATELET COUNT 225 10^3/uL (150-450); RED BLOOD COUNT 4.09 10^6/uL (3.72-5.28); RED CELL DISTRIBUTION WIDTH 15.4 % (11.5-14.0); SEGMENTED NEUTROPHILS % (AUTO) 74.9 % (42-78); TOTAL CELLS COUNTED % (AUTO) 100 %; WHITE BLOOD COUNT 11.7 10^3/uL (4.0-10.5)
[2019-05-24 17:47] LABS: APPEARANCE,URINE CLEAR; BILIRUBIN,URINE NEGATIVE (NEGATIVE); COLOR,URINE YELLOW; GLUCOSE, URINE NEGATIVE (NEGATIVE); KETONES,URINE NEGATIVE (NEGATIVE); LEUKOCYTE ESTERASE,URINE NEGATIVE (NEGATIVE); NITRITE,URINE NEGATIVE (NEGATIVE); PROTEIN,URINE NEGATIVE (NEGATIVE); URINE SPECIFIC GRAVITY 1.008; UROBILINOGEN,URINE NEGATIVE mg/dL (<2.0)
[2019-05-24 17:56] LABS: ALBUMIN 3.3 g/dL (3.5-5.0); ALKALINE PHOSPHATASE 69 U/L (38-126); ANION GAP 8 (5-19); ASPARTATE AMINO TRANSFERASE 32 U/L (14-36); BILIRUBIN,DIRECT 0.1 mg/dL (0.0-0.4); BILIRUBIN,TOTAL 0.3 mg/dL (0.2-1.3); BLOOD UREA NITROGEN 16 mg/dL (7-20); CALCIUM 10.1 mg/dL (8.4-10.2); CARBON DIOXIDE 24 mmol/L (22-30); CHLORIDE 105 mmol/L (98-107); POTASSIUM 4.7 mmol/L (3.6-5.0); TOTAL PROTEIN 6.4 g/dL (6.3-8.2)
[2019-05-24 18:03] LABS: URINE AMPHETAMINES SCREEN NEGATIVE; URINE BARBITURATES SCREEN NEGATIVE; URINE BENZODIAZEPINES SCREEN NEGATIVE; URINE COCAINE SCREEN NEGATIVE; URINE MARIJUANA (THC) SCREEN NEGATIVE; URINE METHADONE SCREEN NEGATIVE; URINE PHENCYCLIDINE SCREEN NEGATIVE
[2019-05-24 18:19] LABS: GLUCOSE 65 mg/dL (75-110)
--- NOTE | 2019-05-24 19:18 | Non Stress Test Report ---
Non Stress Test Datetime Report Generated by CPN: 05/24/2019 19:18 DEMOGRAPHIC EGA NST: 34.2 MONITORING Monitor Explained: Monitor Explained; Test Explained; Patient Verbalized Understanding Time on Monitor: 05/24/2019 17:50 Time off Monitor: 05/24/2019 18:26 NST Duration: 36 NST INTERVENTIONS NST Interventions: PO Hydration BABY A: [id number] BABY A Movement : Present Contraction Frequency : 0 FHR Baseline : 130 Accelerations : 15X15 Decelerations : None Variability : Moderate 6-25bpm NST Review: Meets Criteria for Reactive NST NST Review and Verified By : RDonahoe RN NST Results: Reactive NST REPORT Report Trigger: Send Report
== END 2019-05-24 18:33 | disposition home or self-care (01) ==
LOC: LC 16:32
PROVIDERS: ATTEND Obstetrics & Gynecology Gynecology
PROC: 4A1HXCZ Monitoring of Products of Conception, Cardiac Rate, External Approach (ICD-10-PCS; principal; 2019-05-24)
DX: O16.3 Unspecified maternal hypertension, third trimester (principal); O14.93 Unspecified pre-eclampsia, third trimester; Z3A.34 34 weeks gestation of pregnancy
CPT/HCPCS: 36415; 59025; 80053; 80307; 81001; 83615; 84550; 85025

== ENCOUNTER 2019-05-27 04:08 | Inpatient (IN) | payer BC ==
[2019-05-27 04:47] LABS: APPEARANCE,URINE CLEAR; BILIRUBIN,URINE NEGATIVE (NEGATIVE); COLOR,URINE YELLOW; GLUCOSE, URINE NEGATIVE (NEGATIVE); KETONES,URINE NEGATIVE (NEGATIVE); LEUKOCYTE ESTERASE,URINE NEGATIVE (NEGATIVE); NITRITE,URINE NEGATIVE (NEGATIVE); PROTEIN,URINE 100 mg/dL (NEGATIVE); URINE SPECIFIC GRAVITY 1.018; UROBILINOGEN,URINE NEGATIVE mg/dL (<2.0)
[2019-05-27] MEDS ORDERED: RINGERS SOLUTION,LACTATED 1,000 ML IV PRN ×2 (04:55→08:48)
[2019-05-27 05:08] LABS: URINE AMPHETAMINES SCREEN NEGATIVE; URINE BARBITURATES SCREEN NEGATIVE; URINE BENZODIAZEPINES SCREEN NEGATIVE; URINE COCAINE SCREEN NEGATIVE; URINE MARIJUANA (THC) SCREEN NEGATIVE; URINE METHADONE SCREEN NEGATIVE; URINE PHENCYCLIDINE SCREEN NEGATIVE
[2019-05-27] MEDS ORDERED: PENICILLIN G-K 5 MILLION UNIT VIAL ONE ×3 (06:33→15:24)
[2019-05-27] MEDS ORDERED: PENICILLIN G POTASSIUM 5,000,000 UNIT in DEXTROSE 5%-WATER 100 ML IV ONE (06:36)
[2019-05-27] MEDS ORDERED: MISOPROSTOL 0.2 MG TABLET ONE (07:01)
[2019-05-27] MEDS ORDERED: OXYTOCIN/NORMAL SALINE 20 UNIT/1,000 ML RTUINJ ONE (07:01)
[2019-05-27] MEDS ORDERED: LIDOCAINE 1% INJ-PF (10 MG/ML) 30 ML SDV ONE (07:01)
[2019-05-27 07:19] LABS: ABSOLUTE EOSINOPHILS # (AUTO) 0.2 10^3/uL (0.0-0.6); ABSOLUTE LYMPHOCYTES (AUTO) 1.4 10^3/uL (0.5-4.7); ABSOLUTE NEUT (AUTO) 7.4 10^3/uL (1.7-8.2); BASOPHILS % (AUTO) 0.5 % (0-2); EOSINOPHILS % (AUTO) 2.4 % (0-6); HEMOGLOBIN 11.2 g/dL (12.0-15.5); LYMPHOCYTES % (AUTO) 13.7 % (13-45); MEAN CORPUSCULAR HEMOGLOBIN 27.9 pg (27.0-33.4); MEAN CORPUSCULAR VOLUME 85 fl (80-97); MONOCYTES % (AUTO) 9.6 % (3-13); PLATELET COUNT 195 10^3/uL (150-450); RED BLOOD COUNT 4.02 10^6/uL (3.72-5.28); SEGMENTED NEUTROPHILS % (AUTO) 73.8 % (42-78); TOTAL CELLS COUNTED % (AUTO) 100 %; WHITE BLOOD COUNT 10.1 10^3/uL (4.0-10.5)
--- NOTE | 2019-05-27 07:59 | RADIOLOGY REPORT (SQ) ---
EXAM DESCRIPTION: US LIMITED COMPLETED DATE/TME: 05/27/2019 00:00 CLINICAL HISTORY: 38 years Female, LIE, 34.5w Comparison: None. TECHNIQUE/LIMITATION: Targeted OB sonogram for requested parameters only. FINDINGS: Single IUP Cardiac activity: 139-bpm. LVP: 3-cm Placenta: Anterior.. No demonstrated abruption or previa. Presentation: Vertex. IMPRESSION: Targeted OB sonogram for requested parameters
[2019-05-27] MEDS ORDERED: RINGERS SOLUTION,LACTATED 300 ML IV ONE (08:48)
[2019-05-27] MEDS ORDERED: OXYTOCIN/NORMAL SALINE 20 UNIT/1,000 ML RTUINJ IV PRN (08:48)
[2019-05-27] MEDS ORDERED: NALBUPHINE HCL INJ 10 MG/1 ML AMPULE INJ ONE (09:23)
[2019-05-27] MEDS ORDERED: HYDRALAZINE HCL INJ/PF 20 MG/1 ML SDV IV ONE ×2 (09:23→15:16)
[2019-05-27] MEDS ORDERED: PROMETHAZINE HCL INJ 25 MG/1 ML VIAL IV ONE (09:23)
[2019-05-27] MEDS ORDERED: NALBUPHINE HCL INJ 10 MG/1 ML AMPULE ONE (09:25)
[2019-05-27] MEDS ORDERED: PROMETHAZINE HCL INJ 25 MG/1 ML VIAL ONE (09:25)
[2019-05-27] MEDS ORDERED: HYDRALAZINE HCL INJ/PF 20 MG/1 ML SDV ONE ×2 (09:25→15:17)
[2019-05-27] MEDS: PENICILLIN G POTASSIUM 2,500,000 UNIT in DEXTROSE 5%-WATER 50 ML IV SCH ×2 (11:10→15:28)
[2019-05-27] MEDS ORDERED: PHENYLEPHRINE HCL INJ/PF 10 MG/1 ML SDV ONE (11:15)
[2019-05-27] MEDS ORDERED: FENTANYL CITRATE INJ/PF 100 MCG/2 ML AMPUL ONE (11:15)
[2019-05-27] MEDS ORDERED: FENTANYL/BUPIVACAINE/NS/PF 300 MCG/150 ML RTUINJ EPI ONE (11:16)
[2019-05-27] MEDS ORDERED: BUPIVACAINE HCL 0.25 % INJ/PF (2.5 MG/1 ML) 30 ML VIAL ONE (11:16)
[2019-05-27] MEDS ORDERED: EPHEDRINE SULFATE INJ 50 MG/1 ML AMPULE ONE (11:16)
[2019-05-27] MEDS ORDERED: BENZOCAINE/MENTHOL AEROSOL SPRAY 56 ML ONE (16:51)
[2019-05-27] MEDS ORDERED: ACETAMINOPHEN WITH CODEINE #3 TABLET ONE (16:51)
[2019-05-27] MEDS ORDERED: PROMETHAZINE HCL 25 MG SUPP.RECT PR PRN (17:29)
[2019-05-27] MEDS ORDERED: DIBUCAINE 1% OINTMENT 56 GM TP PRN (17:29)
[2019-05-27] MEDS ORDERED: DIPHENHYDRAMINE HCL 25 MG CAPSULE PO PRN (17:29)
[2019-05-27] MEDS ORDERED: PSEUDOEPHEDRINE HCL 30 MG TABLET PO PRN (17:29)
[2019-05-27] MEDS ORDERED: MEASLES,MUMPS&RUBELLA VACC/PF 0.5 ML VIAL SUBCUT PRN (17:29)
[2019-05-27] MEDS ORDERED: DIPH/PERTUSS(ACELL)/TETANUS VAC/PF 0.5 ML SYR (>=10YO) IM PRN (17:29)
[2019-05-27] MEDS ORDERED: PROMETHAZINE HCL INJ 25 MG/1 ML VIAL IV PRN (17:29)
[2019-05-27] MEDS ORDERED: ACETAMINOPHEN WITH CODEINE #3 TABLET PO PRN (17:29)
[2019-05-27] MEDS ORDERED: NA PHOS,M-B/NA PHOS,DI-BA (ADULT) 133 ML ENEMA PR PRN (17:29)
[2019-05-27] MEDS ORDERED: MAGNESIUM HYDROXIDE SUSP 30 ML UDCUP PO PRN (17:29)
[2019-05-27] MEDS ORDERED: GLYCERIN/WITCH HAZEL LEAF 1 EACH MED..WIPE TP PRN (17:29)
[2019-05-27] MEDS ORDERED: ZOLPIDEM TARTRATE 5 MG TABLET PO PRN (17:29)
[2019-05-27] MEDS ORDERED: BENZOCAINE/MENTHOL AEROSOL SPRAY 56 ML TOP PRN (17:29)
[2019-05-27] MEDS ORDERED: PROMETHAZINE HCL 25 MG TABLET PO PRN (17:29)
[2019-05-27] MEDS ORDERED: OXYTOCIN/NORMAL SALINE 1,000 ML IV PRN (17:29)
[2019-05-27] MEDS ORDERED: ACETAMINOPHEN 650 MG SUPP.RECT PR PRN (17:29)
--- NOTE | 2019-05-27 18:37 | Delivery Summary ---
Del Sum A-C Datetime Report Generated by CPN: 05/27/2019 18:37 DELIVERY PERSONNEL DELIVERY PERSONNEL: [id number] Delivery Doctor:: Shelbi Wright MD Labor and Delivery Nurse:: Adriane Ortiz RNcardiac nurse specialist Nurse:: rTeasure Paredes RN Nursery Nurse:: Nydia Dyer RN Nursery Nurse:: Bridget Frazier RN Soil And Plant Scientist/ACADEMIC AFFAIRS DIRECTOR: Cami Mccallum, STRIPPER LATEX MATERNAL INFORMATION Delivery Anesthesia: Epidural Medications After Delivery: Pitocin Bolus-Please Comment Meds After Delivery Comment: Pitocin 20 units IV bolus Estimated Blood Loss (ml): 200 Delivery QBL: 400 Maternal Complications: Premature Rupture of Membranes LABOR SUMMARY EDC: 07/03/2019 00:00 No. Babies in Womb: 1 Attempted: No Labor Anesthesia: Epidural LABOR INFORMATION Reason for Induction: Premature Rupture of Membranes Onset of Labor: 05/27/2019 03:33 Oxytocin: Induction Group B Beta Strep: unknown Antibiotics # of Doses: 3 Antibiotics Time of Last Dose: 1528 Name of Antibiotic Given: PCN Steroids Given: Full Course; > 24 Hours before Delivery Reason Steroids Not Administered: Not Applicable MEMBRANES Membranes Rupture Method: Spontaneous Rupture of Membranes: 05/27/2019 03:33 Length of Rupture (hr): 12.92 Amniotic Fluid Color: Clear Amniotic Fluid Amount: Small Amniotic Fluid Odor: Normal STAGES OF LABOR Stage 3 hr: 0 Stage 3 min: 4 Total Time in Labor hr: 12 Total Time in Labor min: 59 VAGINAL DELIVERY Episiotomy: None Laceration #1: Vaginal Laceration Extension #1: Second Degree Laceration Repair: Yes Laceration Repair Note: 2-0 chromic repair Sponge Count Correct: N/A Sharps Count Correct: N/A CSECTION DELIVERY Primary Indication: N/A Secondary Indication: N/A CSection Incidence: N/A Labor: N/A Elective: N/A CSection Incision: N/A BABY A INFORMATION Infant Delivery Date/Time: 05/27/2019 16:28 Method of Delivery: Vaginal Born in Route : No : N/A Forceps: N/A Vacuum Extraction: N/A Shoulder Dystocia : No PRESENTATION/POSITION BABY A Presentation: Cephalic Cephalic Presentation: Vertex Vertex Position: Left Occipital Anterior Breech Presentation: N/A PLACENTA INFORMATION BABY A Placenta Delivery Time : 05/27/2019 16:32 Placenta Method of Delivery: Spontaneous Placenta Status: Delivered SCORES BABY A Heart Rate 1 min: >100 bpm Resp Effort 1 min: Good Cry Reflex Irritability 1 min: Cough or Sneeze or Pulls Away Muscle Tone 1 min: Active Motion Color 1 min: Blue/Pale Resuscitation Effort 1 min: Tactile Stimulation SCORE 1 MIN: 8 INFANT INFORMATION BABY A Gestational Age at Delivery: 34.5 Gestational Status: Late - 34- 36.6 Weeks Infant Outcome : Liveborn Condition : Stable Infant Sex: Male IDENTIFICATION BABY A Verification Date/Time: 05/27/2019 16:36 ID Band Number: [id number] Mother's Name Verified: Yes RN Verifying Infant: Brittanie Paredes, RN Additional Verifying Personnel: Henrique Frazier, RN CORD INFORMATION BABY A No. Cord Vessels: 3 Nuchal Cord : N/A Cord Blood Taken: Yes-For Storage (Mom's Blood type +) Infant Suction: None ASSESSMENT BABY A Skin to Skin: Yes BABY B INFORMATION : N/A SIGNATURES Signature: with User ID: [email or web address]
[2019-05-27] MEDS: DOCUSATE SODIUM 100 MG CAPSULE PO SCH (21:39)
[2019-05-27] MEDS: FERROUS SULFATE 325 MG TABLET PO SCH (21:39)
[2019-05-27] MEDS: IBUPROFEN 800 MG TABLET PO SCH (23:22)
[2019-05-27] MEDS: FAMOTIDINE 20 MG TABLET PO SCH (23:22)
[2019-05-28] MEDS ORDERED: HYDRALAZINE HCL INJ/PF 20 MG/1 ML SDV IV ONE (05:00)
[2019-05-28] MEDS: IBUPROFEN 800 MG TABLET PO SCH ×3 (05:11→22:17)
[2019-05-28 07:02] LABS: HEMATOCRIT 33.6 % (36.0-47.0); HEMOGLOBIN 10.9 g/dL (12.0-15.5); MEAN CORPUSCULAR HEMOGLOBIN 27.6 pg (27.0-33.4); MEAN CORPUSCULAR HGB CONC 32.3 g/dL (32.0-36.0); MEAN CORPUSCULAR VOLUME 85 fl (80-97); PLATELET COUNT 200 10^3/uL (150-450); RED BLOOD COUNT 3.94 10^6/uL (3.72-5.28); WHITE BLOOD COUNT 13.5 10^3/uL (4.0-10.5)
--- NOTE | 2019-05-28 10:17 | PDOC PROGRESS REPORT ---
Subjective-OB Progress Note for:: 05/28/19 Subjective: Pt doing well, no concerns. Reports mild headache, no vis changes, has been in NICU baby. Bleeding is light, reg diet and voiding without difficulty. Physical Exam (OB) Vital Signs: Temp Pulse Resp BP Pulse Ox 97.4 F 86 16 130/77 H 100 05/28/19 08:56 05/28/19 08:56 05/28/19 08:56 05/28/19 08:56 05/28/19 08:56 Intake & Output 05/27/19 05/28/19 05/29/19 06:59 06:59 06:59 Weight 140.8 kg - PIH/Pre-Eclampsia Clonus: Negative Headache: Absent Epigastric Pain: No Visual Changes: No - Lochia Lochia Amount: Small 10-25 ml Lochia Color: Rubra/Red - Abdomen Description: Tender, Soft Hernia Present: No Fundal Description: Firm, Midline Fundal Height: u/u - u/2 Objective-Diagnostic Laboratory: 05/28/19 06:37 05/28/19 06:37 WBC 13.5 H RBC 3.94 Hgb 10.9 L Hct 33.6 L MCV 85 MCH 27.6 MCHC 32.3 RDW 16.0 H Plt Count 200 Assessment and Plan(PN) - Assessment and Plan (1) delivered vaginally, 1,750-1,999 grams, 33-34 completed weeks Is this a current diagnosis for this admission?: Yes (2) premature rupture of membranes (PPROM) delivered, current hospitalization Is this a current diagnosis for this admission?: Yes (3) Elevated blood pressure affecting in third trimester, antepartum Is this a current diagnosis for this admission?: Yes (4) Obesity affecting in third trimester Is this a current diagnosis for this admission?: Yes - Time Spent with Patient Time with patient: Less than 15 minutes Medications reviewed and adjusted accordingly: Yes - Disposition Anticipated Discharge: Home Within: within 24 hours
[2019-05-28] MEDS: NIFEDIPINE 30 MG TAB.ER.24 PO SCH (10:33)
[2019-05-28] MEDS: FAMOTIDINE 20 MG TABLET PO SCH ×2 (10:33→22:17)
[2019-05-28] MEDS: DOCUSATE SODIUM 100 MG CAPSULE PO SCH ×2 (10:34→17:51)
[2019-05-28] MEDS: FERROUS SULFATE 325 MG TABLET PO SCH ×2 (10:34→17:51)
[2019-05-28] MEDS: PRENATAL VITAMIN W DHA CAPSULE PO SCH (10:34)
[2019-05-28] MEDS: LABETALOL HCL 200 MG TABLET PO SCH ×2 (10:34→22:19)
[2019-05-28] MEDS: SENNOSIDES/DOCUSATE 8.6-50 MG 1 EACH TABLET PO SCH (10:34)
[2019-05-29] MEDS: ACETAMINOPHEN WITH CODEINE #3 TABLET PO PRN ×2 (03:05→12:06)
[2019-05-29] MEDS: IBUPROFEN 800 MG TABLET PO SCH ×3 (05:15→21:27)
[2019-05-29] MEDS ORDERED: HYDRALAZINE HCL INJ/PF 20 MG/1 ML SDV ONE (05:31)
[2019-05-29] MEDS ORDERED: HYDRALAZINE HCL INJ/PF 20 MG/1 ML SDV IV ONE (06:15)
[2019-05-29 07:51] LABS: HEMATOCRIT 30.5 % (36.0-47.0); MEAN CORPUSCULAR HEMOGLOBIN 28.2 pg (27.0-33.4); MEAN CORPUSCULAR HGB CONC 32.9 g/dL (32.0-36.0); MEAN CORPUSCULAR VOLUME 86 fl (80-97); PLATELET COUNT 202 10^3/uL (150-450); RED BLOOD COUNT 3.56 10^6/uL (3.72-5.28); RED CELL DISTRIBUTION WIDTH 15.6 % (11.5-14.0); WHITE BLOOD COUNT 10.4 10^3/uL (4.0-10.5)
[2019-05-29 08:10] LABS: ALBUMIN 2.8 g/dL (3.5-5.0); ALKALINE PHOSPHATASE 51 U/L (38-126); ANION GAP 8 (5-19); ASPARTATE AMINO TRANSFERASE 33 U/L (14-36); BILIRUBIN,DIRECT 0.1 mg/dL (0.0-0.4); BILIRUBIN,TOTAL 0.2 mg/dL (0.2-1.3); BLOOD UREA NITROGEN 19 mg/dL (7-20); CALCIUM 9.3 mg/dL (8.4-10.2); CARBON DIOXIDE 22 mmol/L (22-30); CHLORIDE 110 mmol/L (98-107); GLUCOSE 98 mg/dL (75-110); POTASSIUM 3.9 mmol/L (3.6-5.0); TOTAL PROTEIN 5.7 g/dL (6.3-8.2)
--- NOTE | 2019-05-29 08:39 | RADIOLOGY REPORT (SQ) ---
EXAM DESCRIPTION: CHEST 2 VIEWS COMPLETED DATE/TIME: 05/29/2019 7:41 am REASON FOR STUDY: SOB COMPARISON: None. EXAM PARAMETERS: NUMBER OF VIEWS: two views TECHNIQUE: Digital Frontal and Lateral radiographic views of the chest acquired. RADIATION DOSE: NA LIMITATIONS: none FINDINGS: LUNGS AND PLEURA: No opacities, masses or pneumothorax. No pleural effusion. MEDIASTINUM AND HILAR STRUCTURES: No masses or contour abnormalities. HEART AND VASCULAR STRUCTURES: Heart normal size. No evidence for failure. BONES: No acute findings. HARDWARE: None in the chest. OTHER: No other significant finding. IMPRESSION: NO ACUTE RADIOGRAPHIC FINDING IN THE CHEST. TECHNICAL DOCUMENTATION: JOB ID: [id number] [employer]- All Rights Reserved Reading location - IP/workstation name: [email or web address]
[2019-05-29] MEDS: FAMOTIDINE 20 MG TABLET PO SCH ×2 (10:21→21:27)
[2019-05-29] MEDS: PRENATAL VITAMIN W DHA CAPSULE PO SCH (10:21)
[2019-05-29] MEDS: DOCUSATE SODIUM 100 MG CAPSULE PO SCH ×2 (10:21→17:48)
[2019-05-29] MEDS: SENNOSIDES/DOCUSATE 8.6-50 MG 1 EACH TABLET PO SCH (10:21)
[2019-05-29] MEDS: FERROUS SULFATE 325 MG TABLET PO SCH ×2 (10:21→17:48)
[2019-05-29] MEDS: LABETALOL HCL 200 MG TABLET PO SCH ×2 (10:21→21:32)
[2019-05-29] MEDS: NIFEDIPINE 30 MG TAB.ER.24 PO SCH (10:21)
--- NOTE | 2019-05-29 10:24 | PDOC PROGRESS REPORT ---
Subjective Progress Note for:: 05/29/19 Subjective:: Patient states that she feels good. She is ambulating voiding without difficulty. She is breast-feeding which is going well. Patient denies chest pain, shortness of breath, fever/chills or nausea/vomiting. However, she states that she is overly tired and feels guilty about taking a nap because she does not want to miss any feedings. Reason For Visit: INDUCTION FOR PPROM Physical Exam - Physical Exam Vital Signs: Temp Pulse Resp BP Pulse Ox 97.4 F 114 H 20 133/76 H 100 05/29/19 07:13 05/29/19 07:13 05/29/19 07:13 05/29/19 07:13 05/29/19 07:13 General appearance: PRESENT: no acute distress Respiratory exam: PRESENT: clear to auscultation yisel Cardiovascular exam: PRESENT: RRR GI/Abdominal exam: PRESENT: normal bowel sounds, soft - Obese Extremities exam: PRESENT: +1 edema Result Laboratory Results: 05/29/19 07:31 05/29/19 07:31 05/29/19 05/29/19 07:31 07:31 WBC 10.4 RBC 3.56 L Hgb 10.0 L Hct 30.5 L MCV 86 MCH 28.2 MCHC 32.9 RDW 15.6 H Plt Count 202 Sodium 139.6 Potassium 3.9 Chloride 110 H Carbon Dioxide 22 Anion Gap 8 BUN 19 Creatinine 0.90 Est GFR ( Amer) > 60 Glucose 98 Calcium 9.3 Total Bilirubin 0.2 AST 33 Alkaline Phosphatase 51 Total Protein 5.7 L Albumin 2.8 L Impressions: Obstetrics Ultrasound 05/27/19 00:00 IMPRESSION: Targeted OB sonogram for requested parameters Chest X-Ray 05/29/19 00:00 IMPRESSION: NO ACUTE RADIOGRAPHIC FINDING IN THE CHEST. Assessment & Plan - Diagnosis (1) delivered vaginally, 1,750-1,999 grams, 33-34 completed weeks Is this a current diagnosis for this admission?: Yes (2) premature rupture of membranes (PPROM) delivered, current hospitalization Is this a current diagnosis for this admission?: Yes (3) Elevated blood pressure affecting in third trimester, antepartum Is this a current diagnosis for this admission?: Yes (4) Obesity affecting in third trimester Is this a current diagnosis for this admission?: Yes (5) Qualifiers: Weeks of gestation: 35 weeks Qualified Code(s): Z3A.35 - 35 weeks gestation of Is this a current diagnosis for this admission?: Yes - Time Time Spent with patient: 15-24 minutes Anticipated discharge: Home Within: within 24 hours - Inpatient Certification Based on my medical assessment, after consideration of the patient's comorbidities, presenting symptoms, or acuity I expect that the services needed warrant INPATIENT care.: Yes I certify that my determination is in accordance with my understanding of Medicare's requirements for reasonable and necessary INPATIENT services [42 CFR 412.3e].: Yes Medical Necessity: Need for Pain Control - Plan Summary Plan Summary: 1. Continue current care
[2019-05-29] MEDS ORDERED: IRON SUCROSE COMPLEX INJ/PF 100 MG/5 ML SDV IV ONE (10:30)
[2019-05-30] MEDS: IBUPROFEN 800 MG TABLET PO SCH ×2 (05:35→13:24)
[2019-05-30] MEDS: SENNOSIDES/DOCUSATE 8.6-50 MG 1 EACH TABLET PO SCH (09:07)
[2019-05-30] MEDS: NIFEDIPINE 30 MG TAB.ER.24 PO SCH (09:07)
[2019-05-30] MEDS: DOCUSATE SODIUM 100 MG CAPSULE PO SCH (09:07)
[2019-05-30] MEDS: PRENATAL VITAMIN W DHA CAPSULE PO SCH (09:07)
[2019-05-30] MEDS: FERROUS SULFATE 325 MG TABLET PO SCH (09:07)
[2019-05-30] MEDS: LABETALOL HCL 200 MG TABLET PO SCH (09:08)
[2019-05-30] MEDS: FAMOTIDINE 20 MG TABLET PO SCH (09:08)
--- NOTE | 2019-05-30 09:15 | PDOC PROGRESS REPORT ---
Subjective-OB Progress Note for:: 05/30/19 Subjective: OOB to nursery, feeling good, baby doing well and will be in hospital a few weeks, voiding, bleeding scant Physical Exam (OB) Vital Signs: Temp Pulse Resp BP Pulse Ox 98.1 F 91 16 165/103 H 99 05/30/19 08:26 05/30/19 08:26 05/30/19 08:26 05/30/19 08:26 05/30/19 08:26 Intake & Output 05/29/19 05/30/19 05/31/19 06:59 06:59 06:59 Intake Total 500 Balance 500 - PIH/Pre-Eclampsia DTR's: 1 + Clonus: Negative Headache: Absent Epigastric Pain: No Visual Changes: No - Lochia Lochia Amount: Scant < 10 ml Lochia Color: Rubra/Red - Abdomen Description: Soft, Round Hernia Present: No Fundal Description: Firm, Midline Fundal Height: u/u - u/2 Objective-Diagnostic Laboratory: 05/29/19 07:31 05/29/19 07:31 Assessment and Plan(PN) - Assessment and Plan (1) Vaginal delivery Is this a current diagnosis for this admission?: Yes (2) Elevated blood pressure affecting in third trimester, antepartum Is this a current diagnosis for this admission?: Yes (3) Obesity affecting in third trimester Is this a current diagnosis for this admission?: Yes (4) delivered vaginally, 1,750-1,999 grams, 33-34 completed weeks Is this a current diagnosis for this admission?: Yes - Time Spent with Patient Time with patient: Less than 15 minutes Medications reviewed and adjusted accordingly: Yes - Disposition Anticipated Discharge: Home Within: within 24 hours
--- NOTE | 2019-05-30 09:21 | PDOC DISCHARGE SUMMARY ---
Impression - Admit/DC Date/PCP Admission Date/Primary Care Provider: 05/27/19 04:54 NURIS RICHARDSON MD Discharge Date: 05/30/19 - Discharge Diagnosis (1) Vaginal delivery Is this a current diagnosis for this admission?: Yes (2) Elevated blood pressure affecting in third trimester, antepartum Is this a current diagnosis for this admission?: Yes (3) Obesity affecting in third trimester Is this a current diagnosis for this admission?: Yes (4) delivered vaginally, 1,750-1,999 grams, 33-34 completed weeks Is this a current diagnosis for this admission?: Yes - Additional Information Resuscitation Status: Full Code Discharge Diet: As Tolerated, Regular Discharge Activity: Activity As Tolerated, Pelvic Rest Referrals: NURIS RICHARDSON MD [Primary Care Provider] - (a 1 week) Prescriptions: Labetalol HCl [Normodyne 200 mg Tablet] 200 mg PO Q12 #60 tablet Nifedipine [Procardia XL 30 mg Tablet] 30 mg PO QAM #30 tab.er.24 Home Medications: Vit/Dha [ Multi + Dha Capsule] 1 cap PO DAILY 03/26/19 Ferrous Sulfate [Ferosul] 325 mg PO BID 05/10/19 Aspirin [Aspirin 81 mg Chewable Tablet] 81 mg PO DAILY #30 tab.chew 05/12/19 Labetalol HCl [Normodyne 200 mg Tablet] 200 mg PO Q12 #60 tablet 05/12/19 Nifedipine [Procardia XL 30 mg Tablet] 30 mg PO QAM #30 tab.er.24 05/12/19 Glyburide/Metformin HCl [Glyburide-Metformin 2.5-500 mg] 2.5 mg PO DAILY 05/24/19 Labetalol HCl [Normodyne 200 mg Tablet] 200 mg PO Q12 #60 tablet 05/30/19 Nifedipine [Procardia XL 30 mg Tablet] 30 mg PO QAM #30 tab.er.24 05/30/19 HPI Gestational Age: 34.5 Reason(s) for Admission: Induction of Labor, PROM Admission Note: GBS unknown, antibiotics given Procedures: NST, Ultrasound, Management of Medical Complications Intrapartum Procedure(s): Spontaneous Vaginal Delivery Complication(s): Laceration-Vaginal Laceration-Degree: 2nd - baby not going home with pt Hospital Course Hospital Course: routine Results Laboratory Results: WBC 10.4 10^3/uL (4.0-10.5) 05/29/19 07:31 RBC 3.56 10^6/uL (3.72-5.28) L 05/29/19 07:31 Hgb 10.0 g/dL (12.0-15.5) L 05/29/19 07:31 Hct 30.5 % (36.0-47.0) L 05/29/19 07:31 MCV 86 fl (80-97) 05/29/19 07:31 MCH 28.2 pg (27.0-33.4) 05/29/19 07:31 MCHC 32.9 g/dL (32.0-36.0) 05/29/19 07:31 RDW 15.6 % (11.5-14.0) H 05/29/19 07:31 Plt Count 202 10^3/uL (150-450) 05/29/19 07:31 Lymph % (Auto) 13.7 % (13-45) 05/27/19 06:47 [place] % (Auto) 9.6 % (3-13) 05/27/19 06:47 Eos % (Auto) 2.4 % (0-6) 05/27/19 06:47 Baso % (Auto) 0.5 % (0-2) 05/27/19 06:47 Absolute Neuts (auto) 7.4 10^3/uL (1.7-8.2) 05/27/19 06:47 Absolute Lymphs (auto) 1.4 10^3/uL (0.5-4.7) 05/27/19 06:47 Absolute Monos (auto) 1.0 10^3/uL (0.1-1.4) 05/27/19 06:47 Absolute Eos (auto) 0.2 10^3/uL (0.0-0.6) 05/27/19 06:47 Absolute Basos (auto) 0.0 10^3/uL (0.0-0.2) 05/27/19 06:47 Seg Neutrophils % 73.8 % (42-78) 05/27/19 06:47 Sodium 139.6 mmol/L (137-145) 05/29/19 07:31 Potassium 3.9 mmol/L (3.6-5.0) 05/29/19 07:31 Chloride 110 mmol/L (98-107) H 05/29/19 07:31 Carbon Dioxide 22 mmol/L (22-30) 05/29/19 07:31 Anion Gap 8 (5-19) 05/29/19 07:31 BUN 19 mg/dL (7-20) 05/29/19 07:31 Creatinine 0.90 mg/dL (0.52-1.25) 05/29/19 07:31 Est GFR ( Amer) > 60 (>60) 05/29/19 07:31 Est GFR (MDRD) Non-Af > 60 (>60) 05/29/19 07:31 Glucose 98 mg/dL (75-110) 05/29/19 07:31 Calcium 9.3 mg/dL (8.4-10.2) 05/29/19 07:31 Total Bilirubin 0.2 mg/dL (0.2-1.3) 05/29/19 07:31 Direct Bilirubin 0.1 mg/dL (0.0-0.4) 05/29/19 07:31 Neonat Total Bilirubin Not Reportable 05/29/19 07:31 Neonat Direct Bilirubin Not Reportable 05/29/19 07:31 Neonat Indirect Bili Not Reportable 05/29/19 07:31 AST 33 U/L (14-36) 05/29/19 07:31 ALT 23 U/L (<35) 05/29/19 07:31 Alkaline Phosphatase 51 U/L (38-126) 05/29/19 07:31 Total Protein 5.7 g/dL (6.3-8.2) L 05/29/19 07:31 Albumin 2.8 g/dL (3.5-5.0) L 05/29/19 07:31 Urine Color YELLOW 05/27/19 04:20 Urine Appearance CLEAR 05/27/19 04:20 Urine pH 7.0 (5.0-9.0) 05/27/19 04:20 Ur Specific [place] 1.018 05/27/19 04:20 Urine Protein 100 mg/dL (NEGATIVE) H 05/27/19 04:20 Urine Glucose (UA) NEGATIVE mg/dL (NEGATIVE) 05/27/19 04:20 Urine Ketones NEGATIVE mg/dL (NEGATIVE) 05/27/19 04:20 Urine Blood MODERATE (NEGATIVE) H 05/27/19 04:20 Urine Nitrite NEGATIVE (NEGATIVE) 05/27/19 04:20 Urine Bilirubin NEGATIVE (NEGATIVE) 05/27/19 04:20 Urine Urobilinogen NEGATIVE mg/dL (<2.0) 05/27/19 04:20 Ur Leukocyte Esterase NEGATIVE (NEGATIVE) 05/27/19 04:20 Urine WBC (Auto) 3 /HPF 05/27/19 04:20 Urine RBC (Auto) 51 /HPF 05/27/19 04:20 Squamous Epi Cells Auto 2 /HPF 05/27/19 04:20 Urine Mucus (Auto) RARE /LPF 05/27/19 04:20 Urine Ascorbic Acid 20 (NEGATIVE) H 05/27/19 04:20 Membranes Rupture POSITIVE (NEGATIVE) H 05/27/19 04:30 Urine Opiates Screen NEGATIVE 05/27/19 04:20 Urine Methadone Screen NEGATIVE 05/27/19 04:20 Ur Barbiturates Screen NEGATIVE 05/27/19 04:20 Ur Phencyclidine Scrn NEGATIVE 05/27/19 04:20 Ur Amphetamines Screen NEGATIVE 05/27/19 04:20 U Benzodiazepines Scrn NEGATIVE 05/27/19 04:20 Urine Cocaine Screen NEGATIVE 05/27/19 04:20 U Marijuana (THC) Screen NEGATIVE 05/27/19 04:20 RPR NONREACTIVE (NONREACTIVE) 05/27/19 06:47 Blood Type A POSITIVE 05/27/19 06:47 Antibody Screen NEGATIVE 05/27/19 06:47 Impressions: Obstetrics Ultrasound 05/27/19 00:00 IMPRESSION: Targeted OB sonogram for requested parameters Chest X-Ray 05/29/19 00:00 IMPRESSION: NO ACUTE RADIOGRAPHIC FINDING IN THE CHEST. Plan Health Concerns: hypertension Plan of Treatment: continue BP meds, follow closely Goals: BP stays normal, no complications Time Spent: Less than 30 Minutes
[2019-05-30 12:15] VITALS: BP 149/81
== END 2019-05-30 13:47 | disposition home or self-care (01) | DRG 806 ==
LOC: LC 04:08 → LR 04:54 → 2S 21:19
PROVIDERS: ADMIT Obstetrics & Gynecology; ATTEND Obstetrics & Gynecology
PROC: 10E0XZZ Delivery of Products of Conception, External Approach (ICD-10-PCS; principal; 2019-05-27)
PROC: 0KQM0ZZ Repair Perineum Muscle, Open Approach (ICD-10-PCS; 2019-05-27)
PROC: 3E033VJ Introduction of Other Hormone into Peripheral Vein, Percutaneous Approach (ICD-10-PCS; 2019-05-27)
DX: O42.013 Preterm premature rupture of membranes, onset of labor within 24 hours of rupture, third trimester (principal); O16.3 Unspecified maternal hypertension, third trimester; Z37.0 Single live birth; O99.213 Obesity complicating pregnancy, third trimester; O70.1 Second degree perineal laceration during delivery; R03.0 Elevated blood-pressure reading, without diagnosis of hypertension; Z79.899 Other long term (current) drug therapy; Z79.82 Long term (current) use of aspirin; Z79.84 Long term (current) use of oral hypoglycemic drugs; Z3A.34 34 weeks gestation of pregnancy
CPT/HCPCS: 36415; 71046; 76815; 80053; 80307; 81001; 84112; 85025; 85027; 86592; 86850; 86900; 86901; 88307; J0360; J1756; J2300; J2370; J2540; J2550; J2590; J3010; J3490; J7060

== ENCOUNTER 2019-05-31 01:04 | Emergency (ER) | payer BC ==
--- NOTE | 2019-05-31 02:13 | ER Document Report ---
ED General - General Chief Complaint: High Blood Pressure Stated Complaint: BLOOD PRESSURE ISSUES/HEADACHE Time Seen by Provider: 05/31/19 02:13 Primary Care Provider: NURIS RICHARDSON MD [Primary Care Provider] - Follow up as needed Information source: Patient - And spouse TRAVEL OUTSIDE OF THE [place] IN LAST 30 DAYS: No - HPI Notes: pt gave on Tuesday early induced a few weeks early given presence of preeclampsia high blood pressures and headaches. was officially dc today. she has had elevated bp today she and say and tonight her vision has been blurry. pt has been taking bp meds as prescribed. She last took her nighttime labetalol at 9 PM. She takes that daytime and nighttime and the nifedipine only daytime. She underwent an echocardiogram just recently and this was within normal limits she reports. She denies any vomiting agrees no seizure at all. no double vision. She had the headache has not really abated with the Tylenol she took earlier. No weakness or tingling or clumsiness in her arms or legs has been says and she agrees no falls. She is had some vaginal spotting and bleeding since the delivery. No severe abdominal pain or other pain anywhere. Her bowel movements have been okay. Has been pumping, doing okay with that. Testes not slept all that much. - Related Data Allergies/Adverse Reactions: acetaminophen [From Midrin] Allergy (Verified 05/27/19 04:40) dichloralphenazone [From Midrin] Allergy (Verified 05/27/19 04:40) isometheptene [From Midrin] Allergy (Verified 05/27/19 04:40) Home Medications: labatelol bid. nifidipine qday Past Medical History - General Information source: Patient - Social History Smoking Status: Never Smoker Frequency of alcohol use: None Drug Abuse: None Family History: Reviewed & Not Pertinent Patient has suicidal ideation: No Patient has homicidal ideation: No - Past Medical History Cardiac Medical History: Reports: Hx Hypertension Denies: Hx Coronary Artery Disease, Hx Heart Attack Pulmonary Medical History: Reports: Hx Asthma - A CHILD Denies: Hx Bronchitis, Hx COPD, Hx Pneumonia Neurological Medical History: Denies: Hx Cerebrovascular Accident, Hx Seizures Renal/ Medical History: Denies: Hx Peritoneal Dialysis Musculoskeletal Medical History: Denies Hx Arthritis Past Surgical History: Reports: Hx Appendectomy - gastric sleeve 2016 - Immunizations Immunizations up to date: Yes Hx Diphtheria, Pertussis, Tetanus Vaccination: Yes Review of Systems - Review of Systems Constitutional: No symptoms reported. denies: Chills, Diaphoresis, Fever, Weakness EENT: No symptoms reported. denies: Eye pain, Eye discharge, Tearing, Double vision, Ear pain, Ear discharge, Nose pain, Nose congestion, Nose discharge, Sinus pressure, Sinus discharge, Throat pain, Difficulty swallowing, Throat swelling, Mouth pain, Vertigo Cardiovascular: No symptoms reported. denies: Chest pain, Palpitations, Heart racing, Orthopnea, Dyspnea, Syncope, Dizziness, Lightheaded, Edema, Paroxysmal Nocturnal Dysp Respiratory: No symptoms reported Gastrointestinal: No symptoms reported Genitourinary: No symptoms reported Female Genitourinary: No symptoms reported Musculoskeletal: No symptoms reported Skin: No symptoms reported Hematologic/Lymphatic: No symptoms reported Neurological/Psychological: No symptoms reported Physical Exam - Vital signs Vitals: Temp Pulse Resp BP Pulse Ox 97.9 F 102 H 18 181/109 H 97 05/31/19 01:31 05/31/19 01:31 05/31/19 01:31 05/31/19 01:31 05/31/19 01:31 Course - Re-evaluation Re-evalutation: 05/31/19 07:39 Initial blood pressures were 150s over 110s. On initial and then repeat neuro exams fully nonfocal. Gave 10 of labetalol 1 g of magnesium IV. Her blood pressure did not change much so about 20 minutes later gave 20 IV labetalol and her blood pressure did improve to 140s over less than 100. Her symptoms reso lved and she felt much much much better she said. I educated I would go ahead and take her morning nifedipine and labetalol as usual since she we never went too low on either heart rate or blood pressure here. Educated on following up with her primary care and DATA ANALYTICS CHIEF SCIENTIST and instructed to return for any severe headaches that persist with any vision change or other concerns. - Vital Signs Vital signs: Temp Pulse Resp BP Pulse Ox 98.2 F 73 26 H 148/98 H 98 05/31/19 04:02 05/31/19 04:02 05/31/19 05:41 05/31/19 05:41 05/31/19 05:41 - Laboratory Result Diagrams: 05/31/19 02:05 05/31/19 02:05 Laboratory results interpreted by me: 05/31/19 05/31/19 05/31/19 02:05 02:05 02:32 Hgb 11.0 L Hct 33.4 L RDW 15.7 H AST 118 H Albumin 3.3 L Urine Protein 30 H Urine Blood LARGE H Ur Leukocyte Esterase MODERATE H Discharge - Discharge Clinical Impression: Headache Qualifiers: Headache type: unspecified Headache chronicity pattern: acute headache Intra ctability: not intractable Qualified Code(s): R51 - Headache Pre-eclampsia Qualifiers: Trimester: third trimester Qualified Code(s): O14.93 - Unspecified pre- eclampsia, third trimester Condition: Good Disposition: HOME, SELF-CARE Additional Instructions: We gave you 20 of IV labetalol and IV magnesium and Tylenol while you are in the emergency department and your headache resolved. Please still take your labetalol and nifedipine this morning at 10 AM as you have been, and continue taking both medications as you have been prescribed them. Please follow-up with your DATA ANALYTICS CHIEF SCIENTIST, call the office and let them know you are seen in the ED for headache, and they may need to see you in the office to make sure your blood pressure still under control. Otherwise follow-up with your primary care doctor as needed for this. Return or seek medical attention if you have any headache with nausea vomiting double vision other vision changes or severe headache that does not go away. Also at the first sign of headache please take ibuprofen or Tylenol as directed. Referrals: NURIS RICHARDSON MD [Primary Care Provider] - Follow up as needed
[2019-05-31 02:15] LABS: ABSOLUTE EOSINOPHILS # (AUTO) 0.4 10^3/uL (0.0-0.6); ABSOLUTE LYMPHOCYTES (AUTO) 1.5 10^3/uL (0.5-4.7); ABSOLUTE MONOCYTES (AUTO) 0.7 10^3/uL (0.1-1.4); ABSOLUTE NEUT (AUTO) 6.6 10^3/uL (1.7-8.2); BASOPHILS % (AUTO) 0.4 % (0-2); EOSINOPHILS % (AUTO) 4.2 % (0-6); HEMATOCRIT 33.4 % (36.0-47.0); LYMPHOCYTES % (AUTO) 16.7 % (13-45); MEAN CORPUSCULAR HEMOGLOBIN 27.9 pg (27.0-33.4); MEAN CORPUSCULAR HGB CONC 32.8 g/dL (32.0-36.0); MEAN CORPUSCULAR VOLUME 85 fl (80-97); MONOCYTES % (AUTO) 7.4 % (3-13); PLATELET COUNT 240 10^3/uL (150-450); RED BLOOD COUNT 3.94 10^6/uL (3.72-5.28); RED CELL DISTRIBUTION WIDTH 15.7 % (11.5-14.0); SEGMENTED NEUTROPHILS % (AUTO) 71.3 % (42-78); TOTAL CELLS COUNTED % (AUTO) 100 %; WHITE BLOOD COUNT 9.2 10^3/uL (4.0-10.5)
[2019-05-31 02:35] LABS: ALBUMIN 3.3 g/dL (3.5-5.0); ALKALINE PHOSPHATASE 61 U/L (38-126); ANION GAP 8 (5-19); ASPARTATE AMINO TRANSFERASE 118 U/L (14-36); BILIRUBIN,DIRECT 0.1 mg/dL (0.0-0.4); BILIRUBIN,TOTAL 0.3 mg/dL (0.2-1.3); BLOOD UREA NITROGEN 15 mg/dL (7-20); CALCIUM 9.6 mg/dL (8.4-10.2); CARBON DIOXIDE 26 mmol/L (22-30); CHLORIDE 106 mmol/L (98-107); CREATINE KINASE 80 U/L (30-135); GLUCOSE 90 mg/dL (75-110); TOTAL PROTEIN 6.4 g/dL (6.3-8.2)
[2019-05-31 02:49] LABS: APPEARANCE,URINE SLIGHTLY-CLOUDY; BILIRUBIN,URINE NEGATIVE (NEGATIVE); COLOR,URINE YELLOW; GLUCOSE, URINE NEGATIVE (NEGATIVE); KETONES,URINE NEGATIVE (NEGATIVE); LEUKOCYTE ESTERASE,URINE MODERATE (NEGATIVE); NITRITE,URINE NEGATIVE (NEGATIVE); PROTEIN,URINE 30 mg/dL (NEGATIVE); URINE SPECIFIC GRAVITY 1.012; UROBILINOGEN,URINE NEGATIVE mg/dL (<2.0)
[2019-05-31] MEDS ORDERED: LABETALOL HCL INJ 20 MG/4 ML DISP.SYRIN IV PRN (04:28)
[2019-05-31] MEDS ORDERED: LABETALOL HCL INJ 20 MG/4 ML DISP.SYRIN IV ONE (04:28)
[2019-05-31] MEDS ORDERED: MAGNESIUM SULFATE/D5W 1 GM/100 ML RTUPB IV ONE (04:31)
[2019-05-31] MEDS ORDERED: ACETAMINOPHEN 325 MG TABLET PO ONE (04:35)
[2019-05-31 05:43] VITALS: BP 148/98
--- NOTE | 2019-06-01 12:01 | EKG REPORT ---
SEVERITY:- NORMAL ECG - SINUS RHYTHM : Confirmed by: Eddie Hughes 01-Jun-2019 12:00:43
== END 2019-05-31 06:11 | disposition home or self-care (01) ==
LOC: ER 01:04
DX: O99.89 Other specified diseases and conditions complicating pregnancy, childbirth and the puerperium (principal); I10 Essential (primary) hypertension; R51 Headache; N93.9 Abnormal uterine and vaginal bleeding, unspecified; J45.909 Unspecified asthma, uncomplicated
CPT/HCPCS: 93005; 96376; 99283; 96375; 96365; 36415; 82553; 82550; 85025; 80053; 81001; 93010; J3490; J3475

== ENCOUNTER 2020-05-31 14:12 | Emergency (ER) | payer BC, OTHER ==
[2020-05-31] MEDS ORDERED: KETOROLAC TROMETHAMINE INJ/PF 30 MG/1 ML SDV IV ONE (14:41)
--- NOTE | 2020-05-31 14:43 | ER Document Report ---
ED Medical Screen (RME) - General Chief Complaint: Vaginal Bleeding Stated Complaint: VAGINAL BLEEDING,PAIN Time Seen by Provider: 05/31/20 14:39 Primary Care Provider: NURIS RICHARDSON MD [Primary Care Provider] - Follow up as needed Notes: HPI: 39-year-old morbidly obese female presenting for 2 days of pelvic cramping. Patient thought it was just a bad menstrual cycle, had heavy bleeding 2 days ago minimal bleeding now. States she does have a history of fibroids in 2018 Dr. Shelbi Wright did remove the fibroids. Patient has not normally had cramping like this states initially when she had a heavy bleeding she was saturating a 12-hour of had in 3 hours. PHYSICAL EXAMINATION: Patient appears moderately uncomfortable. Tenderness over the pelvis on palpation. exam deferred in triage I have greeted and performed a rapid initial assessment of this patient. A comprehensive ED assessment and evaluation of the patient, analysis of test results and completion of medical decision making process will be conducted by an additional ED providers. TRAVEL OUTSIDE OF THE [place] IN LAST 30 DAYS: No - Related Data Allergies/Adverse Reactions: acetaminophen [From Midrin] Allergy (Verified 05/31/20 14:38) dichloralphenazone [From Midrin] Allergy (Verified 05/31/20 14:38) isometheptene [From Midrin] Allergy (Verified 05/31/20 14:38) Past Medical History - Past Medical History Cardiac Medical History: Reports: Hx Hypertension Denies: Hx Coronary Artery Disease, Hx Heart Attack Pulmonary Medical History: Reports: Hx Asthma - A CHILD Denies: Hx Bronchitis, Hx COPD, Hx Pneumonia Neurological Medical History: Denies: Hx Cerebrovascular Accident, Hx Seizures Renal/ Medical History: Denies: Hx Peritoneal Dialysis Musculoskeltal Medical History: Denies Hx Arthritis Past Surgical History: Reports: Hx Appendectomy - gastric sleeve 2016 - Immunizations Immunizations up to date: Yes Hx Diphtheria, Pertussis, Tetanus Vaccination: Yes Physical Exam - Vital signs Vitals: Temp Pulse Resp BP Pulse Ox 98.1 F 94 20 149/107 H 100 05/31/20 14:27 05/31/20 14:27 05/31/20 14:27 05/31/20 14:27 05/31/20 14:27 Course - Vital Signs Vital signs: Temp Pulse Resp BP Pulse Ox 98.1 F 94 20 149/107 H 100 05/31/20 14:27 05/31/20 14:27 05/31/20 14:27 05/31/20 14:27 05/31/20 14:27 Doctor's Discharge - Discharge Referrals: NURIS RICHARDSON MD [Primary Care Provider] - Follow up as needed
--- NOTE | 2020-05-31 15:47 | ER Document Report ---
ED GI/ - General Chief Complaint: Vaginal Bleeding Stated Complaint: VAGINAL BLEEDING,PAIN Time Seen by Provider: 05/31/20 14:39 Primary Care Provider: NURIS RICHARDSON MD [Primary Care Provider] - Follow up as needed Mode of Arrival: Ambulatory Information source: Patient Notes: 39-year-old woman presenting to the emergency department with a history of heavy vaginal bleeding since Tuesday, . She states she is always had heavy menstrual cycles and cramping. States that it has been severe enough that she required transfusion in the past. She denies dizziness or chest pain or shortness of breath. Notes that she passed a large clot in the bathroom here in the emergency department few minutes prior to this interview. She is not sure whether she is is , home test was negative the last week. She has a 1-year-old son at home. TRAVEL OUTSIDE OF THE [place] IN LAST 30 DAYS: No - Related Data Allergies/Adverse Reactions: acetaminophen [From Midrin] Allergy (Verified 05/31/20 14:38) dichloralphenazone [From Midrin] Allergy (Verified 05/31/20 14:38) isometheptene [From Midrin] Allergy (Verified 05/31/20 14:38) Past Medical History - General Information source: Patient - Social History Smoking Status: Unknown if Ever Smoked Family History: Reviewed & Not Pertinent - Past Medical History Cardiac Medical History: Reports: Hx Hypertension Denies: Hx Coronary Artery Disease, Hx Heart Attack Pulmonary Medical History: Reports: Hx Asthma - A CHILD Denies: Hx Bronchitis, Hx COPD, Hx Pneumonia Neurological Medical History: Denies: Hx Cerebrovascular Accident, Hx Seizures Renal/ Medical History: Denies: Hx Peritoneal Dialysis Musculoskeletal Medical History: Denies Hx Arthritis Past Surgical History: Reports: Hx Appendectomy - gastric sleeve 2016 - Immunizations Immunizations up to date: Yes Hx Diphtheria, Pertussis, Tetanus Vaccination: Yes Review of Systems - Review of Systems Notes: Constitutional: Negative for fever. HENT: Negative for sore throat. Eyes: Negative for visual changes. Cardiovascular: Negative for chest pain. Respiratory: Negative for shortness of breath. Gastrointestinal: Negative for abdominal pain, vomiting or diarrhea. Genitourinary: HPI Musculoskeletal: Negative for back pain. Skin: Negative for rash. Neurological: Negative for headaches, weakness or numbness. 10 point ROS negative except as marked above and in HPI. Physical Exam - Vital signs Vitals: Temp Pulse Resp BP Pulse Ox 98.1 F 94 20 149/107 H 100 05/31/20 14:27 05/31/20 14:27 05/31/20 14:27 05/31/20 14:05/31/20 14:27 - Notes Notes: PHYSICAL EXAMINATION: Physical Exam: General: Well-nourished well-developed female in no acute distress HEENT: NC/AT, pupils equal round and reactive to light, MM moist,nares clear, oropharynx clear, airway patent Neck: supple, no adenopathy, no masses. Good range of motion Lungs: clear, no wheezing, no rales no rhonchi CVS: Regular rate and rhythm no murmur gallop or rub Abdomen: Soft, active, nontender, no masses, no hepatosplenomegaly Ext: No edema, clubbing or cyanosis. Neuro: Alert and responsive, moving all 4 extremities on command, cranial nerves intact, no focal findings Skin: Intact no open lesions, no rash Course - Re-evaluation Re-evalutation: 05/31/20 17:07 Patient was concerned that she may be anemic and has required fusion in the past. Today the hemoglobin/hematocrit is 11.5 and 35.7. test is negative. Patient was quite pleased with the results and the Toradol resolved the cramping. She will follow up with the [facility] as an outpatient and continue to monitor her symptoms at home. I am giving her a prescription for oral Toradol tablets to use for cramping and pain. And patient is encouraged to follow-up in the emergency department if your symptoms are not worsening or if she has other concerns. - Vital Signs Vital signs: Temp Pulse Resp BP Pulse Ox 98.1 F 94 20 149/107 H 100 05/31/20 14:27 05/31/20 14:27 05/31/20 14:27 05/31/20 14:27 05/31/20 14:27 - Laboratory Result Diagrams: 05/31/20 15:35 05/31/20 15:35 Laboratory results interpreted by me: 05/31/20 05/31/20 15:35 15:35 Hgb 11.5 L Hct 35.7 L MCV 79 L MCH 25.4 L RDW 14.9 H Urine Protein 100 H Urine Blood LARGE H I have reviewed laboratory data and used this information for the treatment deci sions regarding the patient. Discharge - Discharge Clinical Impression: Abnormal vaginal bleeding, Menorrhagia Condition: Good Disposition: HOME, SELF-CARE Instructions: Vaginal Bleeding ([facility]) Additional Instructions: You were seen in the emergency department today with heavy menstrual cycle with associated cramping. Your blood count was noted to be 11.5/35.7 and a test was negative. Please follow-up with the [facility]. Call for an appointment, noting that you were seen in the emergency department today. Is given a prescription for Toradol tablets 10 mg 1 every 6 hours as needed for pain. HOME CARE INSTRUCTIONS & INFORMATION: Thank you for choosing us for your medical needs. We hope you're satisfied with the care you received. After you leave, you must properly care for your problem and, at the same time, observe its progress. Any condition can change. Some illnesses can change rapidly over hours or days. If your condition worsens, return to the Emergency Department or see your physician promptly. ABOUT YOUR X-RAYS AND EKG'S: If you had an EKG or X-rays taken, they have been read by the Emergency Physician. The X-rays and EKG's will also be read by a Radiologist or Automation Control Technician within 24 hours. If discrepancies are noted, you will be notified by telephone. Please be certain the ED has a correct telephone number & address where you can be reached. Also, realize that some fractures or abnormalities do not show up on initial X-rays. If your symptoms continue, see your physician. ABOUT YOUR LABORATORY TEST: If you had laboratory tests, the results have been reviewed by the Emergency Physician. Some test results (for example cultures) may not be available for several days. You will be contacted if any test result shows you need additional treatment. Please be certain the ED has a correct telephone number and address where you can be reached. ABOUT YOUR MEDICATIONS: You will receive instructions on how to take your medicine on the prescription label you receive. Additional information may be provided by the Pharmacy. If you have questions afterwards, call the ED for clarification or further instructions. Some prescribed medications may cause drowsiness. Do not perform tasks such as driving a car or operating machinery without consulting your Pharmacist. If you feel you need a refill of pain medication, your condition will need re-evaluation. Please do not call for a refill of any medication. ABOUT YOUR SIGNATURE: Signature of this document acknowledges to followin. Understanding that you received emergency treatment and that you may be released before al medical problems are known or treated. Please be certain the ED has a correct phone number & address where you can be reached. 2. Acknowledgement that you will arrange for follow-up care as recommended. 3. Authorization for the Emergency Physician to provide information to your follow-up Physician in order to maximize your care. AT ANY TIME, IF YOUR SYMPTOMS CHANGE SIGNIFICANTLY OR WORSEN OR YOU DEVELOP NEW SYMPTOMS, RETURN TO THE EMERGENCY DEPARTMENT IMMEDIATELY FOR RE-EVALUATION. OUR GOAL IS TO PROVIDE EXCELLENT MEDICAL CARE! WE HOPE THAT WE HAVE MET YOUR EXPECTATIONS DURING YOUR EMERGENCY DEPARTMENT VISIT AND THAT YOU FEEL YOU HAVE RECEIVED EXCELLENT CARE! Prescriptions: Ketorolac Tromethamine [Toradol 10 mg Tablet] 10 mg PO Q6HP PRN #14 tablet PRN Reason: For Pain Referrals: NURIS RICHARDSON MD [Primary Care Provider] - Follow up as needed [facility] [Provider Group] - Follow up as needed
[2020-05-31 16:10] LABS: ABSOLUTE EOSINOPHILS # (AUTO) 0.2 10^3/uL (0.0-0.6); ABSOLUTE LYMPHOCYTES (AUTO) 1.9 10^3/uL (0.5-4.7); ABSOLUTE MONOCYTES (AUTO) 0.7 10^3/uL (0.1-1.4); ABSOLUTE NEUT (AUTO) 5.8 10^3/uL (1.7-8.2); BASOPHILS % (AUTO) 0.4 % (0-2); EOSINOPHILS % (AUTO) 2.6 % (0-6); HEMATOCRIT 35.7 % (36.0-47.0); HEMOGLOBIN 11.5 g/dL (12.0-15.5); LYMPHOCYTES % (AUTO) 22.3 % (13-45); MEAN CORPUSCULAR HEMOGLOBIN 25.4 pg (27.0-33.4); MEAN CORPUSCULAR HGB CONC 32.2 g/dL (32.0-36.0); MEAN CORPUSCULAR VOLUME 79 fl (80-97); MONOCYTES % (AUTO) 7.6 % (3-13); PLATELET COUNT 292 10^3/uL (150-450); RED BLOOD COUNT 4.52 10^6/uL (3.72-5.28); RED CELL DISTRIBUTION WIDTH 14.9 % (11.5-14.0); SEGMENTED NEUTROPHILS % (AUTO) 67.1 % (42-78); TOTAL CELLS COUNTED % (AUTO) 100 %; WHITE BLOOD COUNT 8.7 10^3/uL (4.0-10.5)
[2020-05-31 16:12] LABS: APPEARANCE,URINE SLIGHTLY-CLOUDY; BILIRUBIN,URINE NEGATIVE (NEGATIVE); COLOR,URINE YELLOW; GLUCOSE, URINE NEGATIVE (NEGATIVE); KETONES,URINE NEGATIVE (NEGATIVE); LEUKOCYTE ESTERASE,URINE NEGATIVE (NEGATIVE); NITRITE,URINE NEGATIVE (NEGATIVE); PROTEIN,URINE 100 mg/dL (NEGATIVE); URINE SPECIFIC GRAVITY 1.027; UROBILINOGEN,URINE NEGATIVE mg/dL (<2.0)
[2020-05-31 16:19] LABS: ALBUMIN 3.8 g/dL (3.5-5.0); ALKALINE PHOSPHATASE 76 U/L (38-126); ANION GAP 5 (5-19); ASPARTATE AMINO TRANSFERASE 20 U/L (14-36); BILIRUBIN,TOTAL 0.4 mg/dL (0.2-1.3); BLOOD UREA NITROGEN 14 mg/dL (7-20); CALCIUM 9.4 mg/dL (8.4-10.2); CARBON DIOXIDE 29 mmol/L (22-30); CHLORIDE 104 mmol/L (98-107); GLUCOSE 98 mg/dL (75-110); POTASSIUM 3.9 mmol/L (3.6-5.0); TOTAL PROTEIN 7.1 g/dL (6.3-8.2)
--- NOTE | 2020-05-31 16:29 | RADIOLOGY REPORT (SQ) ---
EXAM DESCRIPTION: U/S NON OB PEL W/DOPPLER IMAGES COMPLETED DATE/TIME: 05/31/2020 2:54 pm REASON FOR STUDY: PELVIC PAIN. LMP 05/26/2020. COMPARISON: None. TECHNIQUE: Dynamic and static grayscale images acquired of the pelvis via transabdominal approach an d recorded on PACS. Additional selected color Doppler and spectral images recorded. LIMITATIONS: None. FINDINGS: UTERUS: Contour normal. 2.7 x 2.1 x 2 cm uterine fibroid at the fundus. ENDOMETRIAL STRIPE: No focal or generalized thickening. No masses. Small amount of fluid in the endo metrial canal. CERVIX: No nabothian cysts. RIGHT OVARY AND DOPPLER: Normal size. No worrisome masses. Normal arterial vascular flow without evid ence for torsion. LEFT OVARY AND DOPPLER: Normal size. No worrisome masses. Normal arterial vascular flow without evide nce for torsion. FREE FLUID: None noted. OTHER: No other significant finding. MEASUREMENTS: UTERUS: 8.7 x 6.6 x 4.4 cm ENDOMETRIAL STRIPE: 7 mm RIGHT OVARY: 1.5 x 1.4 x 1 cm LEFT OVARY: 2.2 x 1.4 x 1.9 cm IMPRESSION: 1. Small uterine fibroid at the uterine fundus. 2. No sonographic abnormality of the uterus or ovaries. No evidence of torsion. TECHNICAL DOCUMENTATION: JOB ID: [id number] [employer]- All Rights Reserved Rev-11/18 Reading location - IP/workstation name: [email or web address]
[2020-05-31 17:39] VITALS: BP 132/85
== END 2020-05-31 17:38 | disposition home or self-care (01) ==
LOC: ER 14:12
DX: N92.0 Excessive and frequent menstruation with regular cycle (principal); I10 Essential (primary) hypertension; Z88.6 Allergy status to analgesic agent
CPT/HCPCS: 99285; 96374; 36415; 85025; 81025; 80053; 81001; 76856; 93976; J1885

== ENCOUNTER 2020-07-15 05:36 | Day surgery (SDC) | payer OTHER ==
[2020-07-10 09:13] LABS: HEMATOCRIT 37.3 % (36.0-47.0); HEMOGLOBIN 11.8 g/dL (12.0-15.5); MEAN CORPUSCULAR HEMOGLOBIN 24.4 pg (27.0-33.4); MEAN CORPUSCULAR HGB CONC 31.7 g/dL (32.0-36.0); MEAN CORPUSCULAR VOLUME 77 fl (80-97); PLATELET COUNT 302 10^3/uL (150-450); RED BLOOD COUNT 4.84 10^6/uL (3.72-5.28); RED CELL DISTRIBUTION WIDTH 15.2 % (11.5-14.0); WHITE BLOOD COUNT 6.2 10^3/uL (4.0-10.5)
[2020-07-10 09:27] LABS: APPEARANCE,URINE SLIGHTLY-CLOUDY; BILIRUBIN,URINE NEGATIVE (NEGATIVE); COLOR,URINE YELLOW; GLUCOSE, URINE NEGATIVE (NEGATIVE); KETONES,URINE NEGATIVE (NEGATIVE); LEUKOCYTE ESTERASE,URINE TRACE (NEGATIVE); NITRITE,URINE NEGATIVE (NEGATIVE); PROTEIN,URINE 30 mg/dL (NEGATIVE); URINE SPECIFIC GRAVITY 1.025; UROBILINOGEN,URINE NEGATIVE mg/dL (<2.0)
[2020-07-10 09:41] LABS: ALBUMIN 4.1 g/dL (3.5-5.0); ALKALINE PHOSPHATASE 75 U/L (38-126); ANION GAP 9 (5-19); ASPARTATE AMINO TRANSFERASE 40 U/L (14-36); BILIRUBIN,DIRECT 0.2 mg/dL (0.0-0.4); BILIRUBIN,TOTAL 0.7 mg/dL (0.2-1.3); BLOOD UREA NITROGEN 13 mg/dL (7-20); CALCIUM 9.4 mg/dL (8.4-10.2); CARBON DIOXIDE 30 mmol/L (22-30); CHLORIDE 102 mmol/L (98-107); GLUCOSE 133 mg/dL (75-110); POTASSIUM 3.9 mmol/L (3.6-5.0); TOTAL PROTEIN 7.5 g/dL (6.3-8.2)
[~2020-07-15 05:36] MED LIST changes: +CEFAZOLIN 2 GM/D5W RTU 2 GM/50 ML RTUPB IV ONE; +CEFAZOLIN 2 GM/D5W RTU 2 GM/50 ML RTUPB IV PRN; +SCOPOLAMINE HYDROBROMIDE 1.5 MG PATCH.TD72 ONE; +SCOPOLAMINE HYDROBROMIDE 1.5 MG PATCH.TD72 TD PRN
[2020-07-15] MEDS ORDERED: FENTANYL CITRATE INJ/PF 250 MCG/5 ML AMPULE ONE (06:48)
[2020-07-15] MEDS ORDERED: HYDROMORPHONE HCL INJ/PF 2 MG/ML AMPULE ONE (06:49)
[2020-07-15] MEDS ORDERED: EPHEDRINE SULFATE INJ 50 MG/1 ML AMPULE ONE (06:49)
[2020-07-15] MEDS ORDERED: MIDAZOLAM 2 MG/2 ML INJ ONE (06:49)
[2020-07-15] MEDS ORDERED: PROPOFOL INJ 200 MG/20 ML VIAL IV ONE (06:49)
[2020-07-15] MEDS ORDERED: SUGAMMADEX SODIUM 200 MG/2 ML SDV IV ONE ×2 (06:49→10:02)
[2020-07-15] MEDS ORDERED: PROMETHAZINE HCL INJ 25 MG/1 ML VIAL IV PRN ×3 (08:23→09:54)
[2020-07-15] MEDS ORDERED: MEPERIDINE HCL/PF INJ 25 MG/1 ML DISP.SYRIN IV PRN (08:23)
[2020-07-15] MEDS ORDERED: MORPHINE SULFATE 10 MG/ML INJ IV PRN (08:23)
[2020-07-15] MEDS ORDERED: FENTANYL CITRATE INJ/PF 100 MCG/2 ML AMPUL IV PRN ×3 (08:23)
[2020-07-15] MEDS ORDERED: DIPHENHYDRAMINE HCL 50 MG/ML VIAL IV PRN (08:23)
[2020-07-15] MEDS ORDERED: ACETAMINOPHEN 1,000 MG/100 ML RTUPB IV PRN (09:54)
[2020-07-15] MEDS ORDERED: HYDROMORPHONE HCL INJ/PF 2 MG/ML AMPULE IV PRN (09:54)
[2020-07-15] MEDS ORDERED: ACETAMINOPHEN 325 MG TABLET PO PRN (09:54)
[2020-07-15] MEDS ORDERED: RINGERS SOLUTION,LACTATED 1,000 ML IV PRN (09:54)
[2020-07-15] MEDS ORDERED: OXYCODONE-ACETAMINOPHEN 5-325 MG TABLET PO PRN ×2 (09:54)
[2020-07-15] MEDS ORDERED: DOCUSATE SODIUM 100 MG CAPSULE PO SCH (10:00)
--- NOTE | 2020-07-15 10:10 | Operative Report ---
Operative Report DATE OF SURGERY: 07/15/20 PREOPERATIVE DIAGNOSIS: Heavy menses and pelvic pain POSTOPERATIVE DIAGNOSIS: Same OPERATION: [employer] robotic hysterectomy with removal of fallopian tubes SURGEON: NURIS RICHARDSON ANESTHESIA: GA TISSUE REMOVED OR ALTERED: Fallopian tubes uterus cervix COMPLICATIONS: None ESTIMATED BLOOD LOSS: 50 cc INTRAOPERATIVE FINDINGS: Adhesion of the left round ligament to the front of the uterus, normal-appearing ovaries PROCEDURE: Patient requests a hysterectomy for her heavy painful menses and previous blood transfusion and anemia. We have discussed weight loss prior to surgery however she feels the hysterectomy is very important and wishes to proceed. Patient was taken to the OR and placed in supine position. Anesthesia was induced. She is placed in the dorsolithotomy position using Francisco stirrups. A tilt test was performed and she tolerated the position well enough to proceed with surgery. Her abdomen perineum and vagina were prepared and draped in a sterile fashion. Dumont catheter was inserted for drainage of the bladder. A weighted speculum was placed and the cervix was dilated allowing the insertion of a Vcare uterine manipulator. An incision was made at the umbilicus and natural umbilical defect was identified and dilated with Daisy clamp allowing a blunt port to be placed. Laparoscopy confirmed appropriate placement and the abdomen was insufflated with CO2 gas. Lateral ports were placed under laparoscopic visualization and a right lower quadrant port was placed for insufflation. This was also done under laparoscopic visualization. The patient was then placed in deep Trendelenburg positioning and the robot was brought to the patient and docked. View of the pelvis was very good the ovaries appeared normal. Each fallopian tube was then removed by cauterizing along the meso salpinx and then excising the fallopian tube and passing it off the field. Next the right utero-ovarian pedicle was cauterized with bipolar cautery and cut with monopolar alonzo. The round ligament likewise was cauterized with bipolar cautery and cut with monopolar alonzo. Staying directly next to the uterus the broad ligament was cauterized with bipolar cautery and cut with monopolar alonzo. The anterior leaf of the broad ligament was also developed on the patient's right creating a bladder flap. The uterine arteries were skeletonized and then cauterized with bipolar cautery but were not yet cut at this time. Attention was turned to the left side of the uterus and the utero-ovarian pedicle was cauterized with bipolar cautery and cut with monopolar alonzo. The round ligament adhesion was divided by cauterizing with bipolar cautery and cut with monopolar alonzo. Staying directly next to the uterus the broad ligament on the left was cauterized with bipolar cautery and cut with monopolar alonzo. The anterior leaf of the broad ligament was also developed creating a bladder flap on the left. The uterine arteries were skeletonized and the uterine arteries were cauterized with bipolar cautery and cut with monopolar alonzo directly next to the cervix. Likewise staying directly next to the cervix the cardinal ligament was cauterized with bipolar cautery and cut with monopolar alonzo. Moving back to the right side of the uterus the uterine artery was cauterized and cut on the right. Staying directly next to the uterus once again the cardinal ligaments were cauterized with bipolar cautery and cut with monopolar alonzo. At this point a circumferential incision was made excising the uterus from the vaginal cuff. This was done staying directly on the V care cup. The uterus was removed through the vagina. The V-Loc suture was then passed into the abdomen and the monopolar alonzo were exchanged for a needle regional otr company driver. The vaginal cuff was then closed. First inspection was performed and no active bleeding was noted. The cuff was closed from right to left. The first suture incorporated anterior vaginal mucosa lateral vaginal sidewall and posterior vaginal mucosa. The stitch was looped and brought tight. The anterior vaginal mucosa was then closed to the posterior vaginal mucosa in a running fashion. Upon reaching the left angle of the incision the suture incorporating anterior vaginal mucosa lateral sidewall and posterior vaginal mucosa. Several sutures were then taken medially and the stitch was cut. The pelvis was irrigated and suctioned free of fluid all pedicles were inspected for hemostasis and good hemostasis was noted. The ureters were inspected and found to be not dilated and peristalsing bilaterally. The robot was undocked from the patient at this point. The pelvis was inspected with laparoscopy and less steep positioning. There was no evidence of active bleeding good hemostasis was noted. The ports were removed under laparoscopic visualization. The gas was allowed to escape from the abdomen and the umbilical port and scope were removed at the same time. The fascia at the umbilicus was closed with a 2-0 Vicryl suture and the skin at all 4 sites closed with a 4-0 undyed Vicryl suture. The Dumont catheter was removed in the OR. The patient was brought out of anesthesia and taken recovery room in stable condition.
[2020-07-15] MEDS ORDERED: LABETALOL HCL INJ 20 MG/4 ML DISP.SYRIN IV ONE ×3 (10:37→11:04)
[2020-07-15] MEDS ORDERED: FENTANYL CITRATE INJ/PF 100 MCG/2 ML AMPUL ONE (10:44)
[2020-07-15] MEDS ORDERED: IBUPROFEN 800 MG TABLET PO SCH (12:00)
[2020-07-15] MEDS ORDERED: METOCLOPRAMIDE HCL INJ/PF 10 MG/2 ML SDV ONE (13:50)
[2020-07-15] MEDS ORDERED: SUCCINYLCHOLINE CHLORIDE INJ 200 MG/10 ML VIAL ONE (13:50)
[2020-07-15] MEDS ORDERED: DIPHENHYDRAMINE HCL 50 MG/ML VIAL ONE (13:50)
[2020-07-15] MEDS ORDERED: ONDANSETRON HCL INJ/PF 4 MG/2 ML SDV ONE (13:50)
[2020-07-15] MEDS ORDERED: ROCURONIUM BROMIDE INJ 50 MG/5 ML VIAL IV ONE (13:50)
[2020-07-15] MEDS ORDERED: DEXAMETHASONE SOD PHOSPHATE INJ 4 MG/1 ML VIAL ONE (13:50)
[2020-07-15] MEDS ORDERED: METOPROLOL TARTRATE PF/INJ 5 MG/5 ML SDV IV ONE (13:50)
[2020-07-15] MEDS ORDERED: KETOROLAC TROMETHAMINE 60 MG/2 ML SDV ONE (13:50)
[2020-07-15] MEDS ORDERED: KETOROLAC TROMETHAMINE INJ/PF 30 MG/1 ML SDV IV SCH (14:00)
[2020-07-15 16:40] LABS: HEMATOCRIT 34.4 % (36.0-47.0); HEMOGLOBIN 11.2 g/dL (12.0-15.5); MEAN CORPUSCULAR HGB CONC 32.6 g/dL (32.0-36.0); MEAN CORPUSCULAR VOLUME 77 fl (80-97); PLATELET COUNT 289 10^3/uL (150-450); RED BLOOD COUNT 4.49 10^6/uL (3.72-5.28); RED CELL DISTRIBUTION WIDTH 15.1 % (11.5-14.0)
[2020-07-15 16:42] VITALS: BP 140/90
--- NOTE | 2020-07-15 17:05 | PDOC DISCHARGE SUMMARY ---
Impression - Admit/DC Date/PCP Admission Date/Primary Care Provider: DEBBIE JOINER PA-C Discharge Date: 07/15/20 - Discharge Diagnosis (1) Heavy menses Is this a current diagnosis for this admission?: Yes - Assessment Summary: The patient was admitted and underwent a robotic hysterectomy for definitive treatment of her heavy menses. She is doing well and would like to go home tonight. Follow is next week. - Additional Information Resuscitation Status: Full Code Discharge Diet: As Tolerated Discharge Activity: Pelvic Rest, Slowly Increase Activity Referrals: DEBBIE JOINER PA-C [Primary Care Provider] - NURIS RICHARDSON MD [ACTIVE STAFF] - 07/28/20 2:30 pm (CALL THE OFFICE FOR QUESTIONS OR CONCERNS.) Prescriptions: Oxycodone HCl/Acetaminophen [Percocet 5-325 mg Tablet] 2 tab PO Q6HP PRN #30 tablet PRN Reason: Ibuprofen [Motrin 800 mg Tablet] 800 mg PO Q8H #30 tablet Home Medications: Ibuprofen [Motrin 800 mg Tablet] 800 mg PO Q8H #30 tablet 07/15/20 Oxycodone HCl/Acetaminophen [Percocet 5-325 mg Tablet] 2 tab PO Q6HP PRN #30 tablet 07/15/20 History of Present Illiness History of Present Illness: NICOLE SHIELDS is a 40 year old female Physical Exam - Physical Exam Vital Signs: Temp Pulse Resp BP Pulse Ox 98.2 F 95 18 140/90 H 100 07/15/20 16:25 07/15/20 16:25 07/15/20 16:25 07/15/20 16:25 07/15/20 16:25 Intake & Output 07/14/20 07/15/20 07/16/20 06:59 06:59 06:59 Intake Total 0 1930 Output Total 650 Balance 0 1280 Weight 134.26 kg Results Laboratory Results: WBC 13.0 10^3/uL (4.0-10.5) H 07/15/20 16:29 RBC 4.49 10^6/uL (3.72-5.28) 07/15/20 16:29 Hgb 11.2 g/dL (12.0-15.5) L 07/15/20 16:29 Hct 34.4 % (36.0-47.0) L 07/15/20 16:29 MCV 77 fl (80-97) L 07/15/20 16:29 MCH 25.0 pg (27.0-33.4) L 07/15/20 16:29 MCHC 32.6 g/dL (32.0-36.0) 07/15/20 16:29 RDW 15.1 % (11.5-14.0) H 07/15/20 16:29 Plt Count 289 10^3/uL (150-450) 07/15/20 16:29 Sodium 141.2 mmol/L (137-145) 07/10/20 08:35 Potassium 3.9 mmol/L (3.6-5.0) 07/10/20 08:35 Chloride 102 mmol/L (98-107) 07/10/20 08:35 Carbon Dioxide 30 mmol/L (22-30) 07/10/20 08:35 Anion Gap 9 (5-19) 07/10/20 08:35 BUN 13 mg/dL (7-20) 07/10/20 08:35 Creatinine 0.82 mg/dL (0.52-1.25) 07/10/20 08:35 Est GFR ( Amer) > 60 (>60) 07/10/20 08:35 Est GFR (MDRD) Non-Af > 60 (>60) 07/10/20 08:35 Glucose 133 mg/dL (75-110) H 07/10/20 08:35 Calcium 9.4 mg/dL (8.4-10.2) 07/10/20 08:35 Total Bilirubin 0.7 mg/dL (0.2-1.3) 07/10/20 08:35 Direct Bilirubin 0.2 mg/dL (0.0-0.4) 07/10/20 08:35 Neonat Total Bilirubin Not Reportable 07/10/20 08:35 Neonat Direct Bilirubin Not Reportable 07/10/20 08:35 Neonat Indirect Bili Not Reportable 07/10/20 08:35 AST 40 U/L (14-36) H 07/10/20 08:35 ALT 48 U/L (<35) H 07/10/20 08:35 Alkaline Phosphatase 75 U/L (38-126) 07/10/20 08:35 Total Protein 7.5 g/dL (6.3-8.2) 07/10/20 08:35 Albumin 4.1 g/dL (3.5-5.0) 07/10/20 08:35 Urine Color YELLOW 07/10/20 08:35 Urine Appearance SLIGHTLY-CLOUDY 07/10/20 08:35 Urine pH 6.0 (5.0-9.0) 07/10/20 08:35 Ur Specific [place] 1.025 07/10/20 08:35 Urine Protein 30 mg/dL (NEGATIVE) H 07/10/20 08:35 Urine Glucose (UA) NEGATIVE mg/dL (NEGATIVE) 07/10/20 08:35 Urine Ketones NEGATIVE mg/dL (NEGATIVE) 07/10/20 08:35 Urine Blood SMALL (NEGATIVE) H 07/10/20 08:35 Urine Nitrite NEGATIVE (NEGATIVE) 07/10/20 08:35 Urine Bilirubin NEGATIVE (NEGATIVE) 07/10/20 08:35 Urine Urobilinogen NEGATIVE mg/dL (<2.0) 07/10/20 08:35 Ur Leukocyte Esterase TRACE (NEGATIVE) H 07/10/20 08:35 Urine WBC (Auto) 8 /HPF 07/10/20 08:35 Urine RBC (Auto) 4 /HPF 07/10/20 08:35 U Hyaline Cast (Auto) 2 /LPF 07/10/20 08:35 Squamous Epi Cells Auto 17 /HPF 07/10/20 08:35 Urine Mucus (Auto) MOD /LPF 07/10/20 08:35 Urine Ascorbic Acid NEGATIVE (NEGATIVE) 07/10/20 08:35 Urine HCG, Qual NEGATIVE (NEGATIVE) 07/15/20 05:30 COVID-19 Source See comment 07/10/20 08:37 COVID-19 (KARINA) Not Detected (Not Detect) 07/10/20 08:37 Blood Type A POSITIVE 07/10/20 08:35 Antibody Screen NEGATIVE 07/10/20 08:35 Stroke Is this a Stroke Patient?: No Acute Heart Failure Is this a Heart Failure Patient?: No
== END 2020-07-15 17:40 | disposition home or self-care (01) ==
LOC: OROUT 05:36 → 2S 11:26 → OROUT 17:40
PROVIDERS: ATTEND Obstetrics & Gynecology
DX: N80.0 Endometriosis of uterus (principal); N92.0 Excessive and frequent menstruation with regular cycle; G47.33 Obstructive sleep apnea (adult) (pediatric); E66.01 Morbid (severe) obesity due to excess calories; Z01.812 Encounter for preprocedural laboratory examination; Z20.822 Contact with and (suspected) exposure to COVID-19; Z86.79 Personal history of other diseases of the circulatory system; Z98.84 Bariatric surgery status; Z87.891 Personal history of nicotine dependence
CPT/HCPCS: 58571; S2900; 36415; 80053; 81001; 81025; 85027; 86850; 86900; 86901; 87635; 88307; C1758; C9803; J0330; J0690; J1100; J1170; J1200; J1885; J2250; J2405; J2704; J2765; J3010; J3490